=== PATIENT | male | born 1990 | race African-American/Black ===

== ENCOUNTER 2016-07-06 11:55 | Emergency (ER) | payer SELFPAY ==
[2016-07-06] MEDS ORDERED: Lorazepam 1 MG TAB ONE ×2 (12:31→12:32)
[2016-07-06 13:13] LABS: #Basophils 0.1 thou/uL (0.0-0.2); #Eosinphils 0.3 thou/uL (0.0-0.7); #Lymphocytes 1.6 thou/uL (1.20-3.40); #Monocytes 0.6 thou/uL (0.11-0.59); #Neutrophils 10.1 thou/uL (1.40-6.50); %Basophils 0.9 % (0.0-1.0); %Eosinophils 2.3 % (0.0-10.0); %Lymphocytes 12.8 % (21.0-51.0); Hemoglobin 15.4 g/dL (14.0-18.0); Mean Corpuscular HGB CONC 33.8 g/dL (32.0-36.0); Mean Corpuscular Hemoglobin 30.8 pg (27.0-31.0); Platelet Count 238 thou/uL (130-400); Red Blood Cell (RBC) Count 5.02 mill/uL (4.70-6.10); White Blood Cell (WBC) Count 12.7 thou/uL (4.8-10.8)
[2016-07-06 13:22] LABS: ALT (SGPT) 16 U/L (0-55); AST (SGOT) 19 U/L (5-34); Albumin 3.8 g/dL (3.5-5.0); Alkaline Phosphatase 49 U/L (40-150); Anion Gap 14 mmol/L (10-20); BUN (Urea Nitrogen) 11 mg/dL (8.9-20.6); Bilirubin, Total 0.7 mg/dL (0.2-1.2); Calc. Creatinine Clearance 0 mL/min (70-130); Calcium 8.9 mg/dL (7.8-10.44); Carbon Dioxide 25 mmol/L (22-29); Chloride 103 mmol/L (98-107); Dilantin Less than 1.8 ug/mL (10.0-20.0); Estimated GFR-MDRD Greater than 90; Globulin 2.2 g/dL (2.4-3.5); Glucose 89 mg/dL (70-105); Potassium 3.7 mmol/L (3.5-5.1); Sodium 138 mmol/L (136-145)
--- NOTE | 2016-07-06 14:19 | ERRECORD ---
[facility] EMERGENCY RECORD HPI SEIZURE (13:41 LLDO) CHIEF COMPLAINT: Patient presents for evaluation of seizure, Patient not currently postictal state, Patient presents for evaluation of this morning doing his community service. had single, tonic only seizure. no real post-ictal. back to normal w/i one minute. did fall and had to be caught. now very mild sx but no other sx. HISTORIAN: History provided by patient, History provided by patient's spouse. LOCATION: Symptoms are generalized. QUALITY: duration of symptoms less than 1 minute. SEVERITY: Maximum severity of symptoms moderate, Currently symptoms are mild. TIME COURSE: Sudden onset of symptoms, just prior to arrival, Symptoms have resolved, are intermittent. ASSOCIATED WITH: Associated with headache. EXACERBATED BY: Patient's condition exacerbated by noncompliance with medications, Patient's condition exacerbated by dilantin level exactly the same as a week ago. RELIEVED BY: Patient's condition relieved spontaneously, Patient's condition relieved by time. ROS CONSTITUTIONAL: Negative constitutional review of systems, pt says the seizures are from anxiety and he is asking for more benzo's. (13:47 LLDO) EYES: Negative eye review of systems, Historian denies eye pain, denies eye redness, denies eye discharge. (13:50 LLDO) ENT: Negative ears, nose, throat review of systems, Historian denies otalgia, denies rhinorrhea, denies sinus pain, denies sore throat. (13:50 LLDO) CARDIOVASCULAR: Negative cardiovascular review of systems, Historian denies chest pain, no radiation, Historian denies diaphoresis, denies paroxysmal nocturnal dyspnea, denies syncope. (13:50 LLDO) RESPIRATORY: Negative respiratory review of systems, Historian denies cough, denies shortness of breath, denies sputum. (13:50 LLDO) GI: Negative gastrointestinal review of systems, Historian denies abdominal pain, denies constipation, denies diarrhea, denies nausea, denies vomiting. (13:50 LLDO) MUSCULOSKELETAL: Negative musculoskeletal review of systems, Historian denies arthralgias, denies fall, denies injury, denies myalgias. (13:50 LLDO) NEUROLOGIC: Historian denies confusion, denies dizziness, denies dysphasia, denies focal weakness, denies gait changes, reports headache, denies irritability, denies lethargy, denies mental status changes, denies paralysis, denies paresthesias, reports seizures, denies sensory changes, denies speech changes, denies tics, denies tremors, denies vertigo. (13:47 LLDO) HEMO/LYMPHATIC: Normal hematologic/lymphatic system review, Historian denies abnormal blood clotting, denies gum bleeding, denies petechiae. (13:50 LLDO) &a-1R&a+25V*p+0X*y2398V*c202B*c15G*c2P*p-0X&a-25V&a+1R Name: Mahad Hernandez : 1990 M25 MedRec: [id number] AcctNum: [id number] Prepared: SunJul 06, 2016 21:13 by Interface Page 1 of 4 pMD [facility] EMERGENCY RECORD ALLERGIC/IMMUNOLOGIC: Normal allergy/immunologic system review, Historian denies eczema, denies environmental allergies, denies food allergies. (13:50 LLDO) PSYCHIATRIC: Negative psychiatric review of systems, Historian denies alcohol abuse, denies anxiety, denies depression, denies drug abuse, denies hallucinations. (13:50 LLDO) NOTES: All systems reviewed, negative except as described above. (13:47 LLDO) PAST MEDICAL HISTORY MEDICAL HISTORY: SEIZURES, ASTHMA. VERIFIED 04/28/16. (SunJul 06, 2016 12:15 SCHI) MALE SURGICAL HISTORY: Patient has no surgical history. (SunJul 06, 2016 12:15 SCHI) PSYCHIATRIC HISTORY: Psychiatric history includes, anxiety, Psychiatric history includes, depression, Notes: HX OF MAKING THREATENING PHONE CALLS; ORDER OF TRESPASS IN PLACE DUE TO SUCH PHONE CALLS, ANXIETY. (SunJul 06, 2016 12:15 SCHI) SOCIAL HISTORY: Patient denies alcohol use, Patient denies drug use, Patient currently uses tobacco, Patient currently uses tobacco, smokes cigarettes, Patient has smoked for 5 years, Social History includes DRUG ABUSE POLYSUBSTANCE, Patient denies alcohol use, Lives at home, with family. (SunJul 06, 2016 12:15 SCHI) NOTES: Nursing records reviewed, Agree with nursing records, Medication list reviewed. (13:50 LLDO) KNOWN ALLERGIES Penicillins CURRENT MEDICATIONS (12:15 SCHI) Dilantin Extended: CAPSULE : Strength - 100 mg : ORAL Patient Dose: 2 cap(s) Oral 2 times a day. VITAL SIGNS (12:15 SCHI) VITAL SIGNS: BP: 155/86, Pulse: 92, Resp: 18, Temp: 98.1 (Tympanic), Pain: 0, O2 sat: 99 on Room Air, Time: 07/06/2016 12:15. PHYSICAL EXAM (13:50 LLDO) CONSTITUTIONAL: Vital signs reviewed, Patient afebrile, Pulse normal, Blood pressure normal, Respiratory rate normal, Patient appears non toxic, Patient appears in pain, in mild pain distress, Patient alert and oriented to person, place and time. HEAD: Head exam normal, Head exam included findings of head atraumatic, normocephalic. EYES: Eye exam normal, Eye exam included findings of eyelids normal to inspection, Pupils equally round and reactive to light, Extraocular muscles intact. ENT: ENT exam normal, Ear exam normal, Nose exam normal. &a-1R&a+25V*p+0X*k2378G*c202B*c15G*c2P*p-0X&a-25V&a+1R Name: Mahad Hernandez : 1990 M25 MedRec: [id number] AcctNum: [id number] Prepared: Katie Jul 06, 2016 21:13 by Interface Page 2 of 4 pMD [facility] EMERGENCY RECORD NECK: Neck exam normal, Neck exam included findings of normal range of motion, Trachea midline, no meningeal signs, no tenderness. RESPIRATORY CHEST: Respiratory and chest exam normal, Respiratory exam included findings of no respiratory distress, Breath sounds clear, Chest exam included findings of chest movement symmetrical, Chest expansion equal. CARDIOVASCULAR: Cardiovascular assessment normal, Cardiovascular exam included findings of heart rate regular rate and rhythm, Heart sounds normal. ABDOMEN MALE: Abdominal exam normal, Abdominal exam included findings of abdomen nontender, Bowel sounds normal, no peritoneal signs. BACK: Back exam normal, Back exam included findings of normal inspection, range of motion normal. UPPER EXTREMITY: Upper extremity exam normal, Upper extremity exam included findings of inspection normal, Range of motion normal. LOWER EXTREMITY: Lower extremity exam normal, Lower extremity exam included findings of inspection normal, Range of motion normal. NEURO: Neuro exam findings include patient oriented to person, place and time, Speech normal, Gait normal, Memory normal, Cranial nerves intact, Deep tendon reflexes normal, no focal motor deficits, no focal sensory deficits, no cerebellar deficits, no nystagmus. SKIN: Skin exam normal, Skin exam included findings of skin warm, dry, and normal in color, no rash. PSYCHIATRIC: Psychiatric exam normal, Psychiatric exam included findings of patient oriented to person place and time, Normal affect, Judgment normal. MEDICATION ADMINISTRATION SUMMARY Drug Name: Ativan oral, Dose Ordered: 2 mg, Route: Oral, Status: Given, Time: 12:37 07/06/2016, Detailed record available in Medication Service section. DOCTOR NOTES TEXT: Dilantin level still 1.8, exactly same as last week. (13:51 LLDO) increase DPH to 300 in am and 200 in evening. get re-tested in 2 weeks. (13:58 LLDO) PROBLEM LIST No recorded problems DIAGNOSIS (13:59 LLDO) FINAL: PRIMARY: Seizure. PRESCRIPTION No recorded prescriptions DISPOSITION &a-1R&a+25V*p+0X*p9738Z*c202B*c15G*c2P*p-0X&a-25V&a+1R Name: Mahad Hernandez : 1990 M25 MedRec: [id number] AcctNum: [id number] Prepared: Katie Jul 06, 2016 21:13 by Interface Page 3 of 4 pMD [facility] EMERGENCY RECORD PATIENT: Disposition Type: Discharge, Disposition: *Discharge Home. (13:59 LLDO) Patient left the department. (14:12 SCHI) Castillo: LLDO=MD Katherine, Ludwin SCHI=BASSAM Liao, Francisa &a-1R&a+25V*p+0X*x4332S*c202B*c15G*c2P*p-0X&a-25V&a+1R Name: Mahad Hernandez Annette : 1990 M25 MedRec: [id number] AcctNum: [id number] Prepared: [facility] Jul 06, 2016 21:13 by Interface Page 4 of 4 pMD [facility]
--- NOTE | 2016-07-06 14:23 | PICIS ---
[facility] EMERGENCY RECORD TRIAGE (SunJul 06, 2016 12:15 SCHI) PATIENT: NAME: Mahad Hernandez, AGE: 25, GENDER: male, : Sun1990, TIME OF GREET: SunJul 06, 2016 11:56, PREFERRED LANGUAGE: Nigerian, RACE: Black or , ETHNICITY: Not or , FALL RISK: NO, ECODE BILLING MAP: [facility], SSN: [id number], Zip Code: [address], KG WEIGHT: 70.31, PHONE: , , , PERSON ID: [id number], PCP: MD Castillo Olayemi. TRIAGE NOTES: DONT THINK THE SEIZURE MEDS IS WORKING, OUT OF HIS MEDS FOR ANXIETY, SMALL SEIZURE THIS MORNING WHILE AT [facility] DOING COMMUNITY SERVICE. COMPLAINT: SEIZURE. ADMISSION: URGENCY: 4 Non Urgent, ADMISSION SOURCE: Home, TRANSPORT: Walk-in, BED: ED -H01. ASSESSMENT: Assessment: ALERT AND ORIENTED X 4, SKIN WARM AND DRY RESP EVEN AND UNLABORED,. TRIAGE SCREENING: Patient denies suicidal ideation, Patient denies presence of domestic violence. PROVIDERS: TRIAGE NURSE: Jennifer Liao RN. PREVIOUS VISIT ALLERGIES: Penicillins. KNOWN ALLERGIES Penicillins CURRENT MEDICATIONS (12:15 SCHI) Dilantin Extended: CAPSULE : Strength - 100 mg : ORAL Patient Dose: 2 cap(s) Oral 2 times a day. VITAL SIGNS (12:15 SCHI) VITAL SIGNS: BP: 155/86, Pulse: 92, Resp: 18, Temp: 98.1 (Tympanic), Pain: 0, O2 sat: 99 on Room Air, Time: 07/06/2016 12:15. NURSING ASSESSMENT: NEURO (12:20 SCHI) GCS: (6) Obeying command:, (5) Orientated:, (4) Spontaneous eye opening., Result: 15. NIHSS: CVA assessment findings: Level of consciousness: alert, keenly responsive (0), Questions: answers both questions correctly (0), Commands: performs both tasks correctly (0), Best gaze: normal (0), Visual: no visual loss (0), Facial palsy: normal symmetrical movement (0), Motor arm left: no drift, arm stays 90/45 degrees for full 10 seconds (0), Motor arm right: no drift, arm stays 90 or45 degrees for full 10 seconds (0), Motor left leg: no drift, leg stays at 30 degrees for full five seconds (0), Motor right leg: no drift, leg stays at 30 degrees for full five seconds (0), Limb ataxia: absent -if 0, go to sensory (0), Sensory: normal, no sensory loss (0), Best language: no aphasia; normal (0), Dysarthria: normal (0), Extinction and Inattention: normal (0), Total score 0. CONSTITUTIONAL: Patient arrives ambulatory, Gait steady, History &a-1R&a+25V*p+0X*m7854Q*c202B*c15G*c2P*p-0X&a-25V&a+1R Name: Mahad Hernandez : 1990 M25 MedRec: [id number] AcctNum: [id number] Prepared: Katie Jul 06, 2016 21:20 by Interface Page 1 of 6 pMD [facility] EMERGENCY RECORD obtained from patient, Patient appears comfortable, Patient cooperative, Patient alert, Oriented to person, place and time, Skin warm, Skin dry, Skin normal in color, Mucous membranes pink, Mucous membranes moist, Patient is well-groomed, Patient complains of seizure like activity. PAIN: Patient rates pain as 0 out of 10. NEURO: Pupils equally round and reactive to light, Able to close eyes, Face symmetrical, Speech normal, Associated with dizziness described as, feelings of movement. NURSING PROCEDURE: DISCHARGE NOTE (14:08 [facility]) DISCHARGE: Patient discharged to home, ambulating without assistance, family driving, accompanied by other family member, Summary of Care printed/ provided, Patient requested and was provided an electronic copy of Discharge Instructions, Transition record given to patient, Discharge instructions given to patient, Simple or moderate discharge teaching performed, Medication reconciliation form given, Above person(s) verbalized understanding of discharge instructions and follow-up care, Patient treated and evaluated by physician. BELONGINGS: Belongings and valuables with patient at time of discharge include:, Belongings remain with patient, Valuables remain with patient. SAFETY: Side rails up, Cart/Stretcher in lowest position, Family at bedside, Hospital ID band on. ORDER DETAILS Order Name: CBC with Differential, Status: Active, Time: 12:25 07/06/2016, User: CARLA, - Ordered for: MD Murphy Lloyd, - Entered by: MD Murphy Lloyd - [facility] Jul 06, 2016 12:25, - Quantity: 1, Order Name: Comprehensive Metabolic Panel, Status: Active, Time: 12:25 07/06/2016, User: CARLA, - Ordered for: MD Murphy Lloyd, - Entered by: MD Murphy Lloyd - [facility] Jul 06, 2016 12:25, - Quantity: 1, Order Name: Dilantin, Status: Active, Time: 12:25 07/06/2016, User: CARLA, - Ordered for: MD Murphy Lloyd, - Entered by: MD Murphy Lloyd - [facility] Jul 06, 2016 12:25, - Quantity: 1. MEDICATION ADMINISTRATION SUMMARY Drug Name: Ativan oral, Dose Ordered: 2 mg, Route: Oral, Status: Given, Time: 12:37 07/06/2016, Detailed record available in Medication Service section. &a-1R&a+25V*p+0X*r7893E*c202B*c15G*c2P*p-0X&a-25V&a+1R Name: Mahad Hernandez : 1990 M25 MedRec: [id number] AcctNum: [id number] Prepared: SunJul 06, 2016 21:20 by Interface Page 2 of 6 pMD [facility] EMERGENCY RECORD MEDICATION SERVICE (12:37 LLDO) Ativan oral: Order: Ativan oral (lorazepam) - Dose: 2 mg : Oral Schedule: Now Ordered by: Ludwin Murphy MD Entered by: Ludwin Murphy MD Katie Jul 06, 2016 12:27 , Acknowledged by: Jennifer Liao RN Katie Jul 06, 2016 12:30 Documented as given by: Jennifer Liao RN Katie Jul 06, 2016 12:37 Patient, Medication, Dose, Route and Time verified prior to administration. Site: Medication administered P.O., Correct patient, time, route, dose and medication confirmed prior to administration, Patient advised of actions and side-effects prior to administration, Allergies confirmed and medications reviewed prior to administration. HPI SEIZURE (13:41 LLDO) CHIEF COMPLAINT: Patient presents for evaluation of seizure, Patient not currently postictal state, Patient presents for evaluation of this morning doing his community service. had single, tonic only seizure. no real post-ictal. back to normal w/i one minute. did fall and had to be caught. now very mild sx but no other sx. HISTORIAN: History provided by patient, History provided by patient's spouse. LOCATION: Symptoms are generalized. QUALITY: duration of symptoms less than 1 minute. SEVERITY: Maximum severity of symptoms moderate, Currently symptoms are mild. TIME COURSE: Sudden onset of symptoms, just prior to arrival, Symptoms have resolved, are intermittent. ASSOCIATED WITH: Associated with headache. EXACERBATED BY: Patient's condition exacerbated by noncompliance with medications, Patient's condition exacerbated by dilantin level exactly the same as a week ago. RELIEVED BY: Patient's condition relieved spontaneously, Patient's condition relieved by time. ROS CONSTITUTIONAL: Negative constitutional review of systems, pt says the seizures are from anxiety and he is asking for more benzo's. (13:47 LLDO) EYES: Negative eye review of systems, Historian denies eye pain, denies eye redness, denies eye discharge. (13:50 LLDO) ENT: Negative ears, nose, throat review of systems, Historian denies otalgia, denies rhinorrhea, denies sinus pain, denies sore throat. (13:50 LLDO) CARDIOVASCULAR: Negative cardiovascular review of systems, Historian denies chest pain, no radiation, Historian denies diaphoresis, denies paroxysmal nocturnal dyspnea, denies syncope. (13:50 LLDO) RESPIRATORY: Negative respiratory review of systems, Historian denies cough, denies shortness of breath, denies sputum. (13:50 LLDO) &a-1R&a+25V*p+0X*b5912G*c202B*c15G*c2P*p-0X&a-25V&a+1R Name: Mahad Hernandez : 1990 M25 MedRec: [id number] AcctNum: [id number] Prepared: [facility] Jul 06, 2016 21:20 by Interface Page 3 of 6 pMD [facility] EMERGENCY RECORD GI: Negative gastrointestinal review of systems, Historian denies abdominal pain, denies constipation, denies diarrhea, denies nausea, denies vomiting. (13:50 LLDO) MUSCULOSKELETAL: Negative musculoskeletal review of systems, Historian denies arthralgias, denies fall, denies injury, denies myalgias. (13:50 LLDO) NEUROLOGIC: Historian denies confusion, denies dizziness, denies dysphasia, denies focal weakness, denies gait changes, reports headache, denies irritability, denies lethargy, denies mental status changes, denies paralysis, denies paresthesias, reports seizures, denies sensory changes, denies speech changes, denies tics, denies tremors, denies vertigo. (13:47 LLDO) HEMO/LYMPHATIC: Normal hematologic/lymphatic system review, Historian denies abnormal blood clotting, denies gum bleeding, denies petechiae. (13:50 LLDO) ALLERGIC/IMMUNOLOGIC: Normal allergy/immunologic system review, Historian denies eczema, denies environmental allergies, denies food allergies. (13:50 LLDO) PSYCHIATRIC: Negative psychiatric review of systems, Historian denies alcohol abuse, denies anxiety, denies depression, denies drug abuse, denies hallucinations. (13:50 LLDO) NOTES: All systems reviewed, negative except as described above. (13:47 LLDO) PAST MEDICAL HISTORY MEDICAL HISTORY: SEIZURES, ASTHMA. VERIFIED 04/28/16. (SunJul 06, 2016 12:15 SCHI) MALE SURGICAL HISTORY: Patient has no surgical history. (SunJul 06, 2016 12:15 SCHI) PSYCHIATRIC HISTORY: Psychiatric history includes, anxiety, Psychiatric history includes, depression, Notes: HX OF MAKING THREATENING PHONE CALLS; ORDER OF TRESPASS IN PLACE DUE TO SUCH PHONE CALLS, ANXIETY. (SunJul 06, 2016 12:15 SCHI) SOCIAL HISTORY: Patient denies alcohol use, Patient denies drug use, Patient currently uses tobacco, Patient currently uses tobacco, smokes cigarettes, Patient has smoked for 5 years, Social History includes DRUG ABUSE POLYSUBSTANCE, Patient denies alcohol use, Lives at home, with family. (SunJul 06, 2016 12:15 SCHI) NOTES: Nursing records reviewed, Agree with nursing records, Medication list reviewed. (13:50 LLDO) PHYSICAL EXAM (13:50 LLDO) CONSTITUTIONAL: Vital signs reviewed, Patient afebrile, Pulse normal, Blood pressure normal, Respiratory rate normal, Patient appears non toxic, Patient appears in pain, in mild pain distress, Patient alert and oriented to person, place and time. HEAD: Head exam normal, Head exam included findings of head atraumatic, normocephalic. EYES: Eye exam normal, Eye exam included findings of eyelids &a-1R&a+25V*p+0X*v0183A*c202B*c15G*c2P*p-0X&a-25V&a+1R Name: Mahad Hernandez : 1990 M25 MedRec: [id number] AcctNum: [id number] Prepared: [facility] Jul 06, 2016 21:20 by Interface Page 4 of 6 pMD [facility] EMERGENCY RECORD normal to inspection, Pupils equally round and reactive to light, Extraocular muscles intact. ENT: ENT exam normal, Ear exam normal, Nose exam normal. NECK: Neck exam normal, Neck exam included findings of normal range of motion, Trachea midline, no meningeal signs, no tenderness. RESPIRATORY CHEST: Respiratory and chest exam normal, Respiratory exam included findings of no respiratory distress, Breath sounds clear, Chest exam included findings of chest movement symmetrical, Chest expansion equal. CARDIOVASCULAR: Cardiovascular assessment normal, Cardiovascular exam included findings of heart rate regular rate and rhythm, Heart sounds normal. ABDOMEN MALE: Abdominal exam normal, Abdominal exam included findings of abdomen nontender, Bowel sounds normal, no peritoneal signs. BACK: Back exam normal, Back exam included findings of normal inspection, range of motion normal. UPPER EXTREMITY: Upper extremity exam normal, Upper extremity exam included findings of inspection normal, Range of motion normal. LOWER EXTREMITY: Lower extremity exam normal, Lower extremity exam included findings of inspection normal, Range of motion normal. NEURO: Neuro exam findings include patient oriented to person, place and time, Speech normal, Gait normal, Memory normal, Cranial nerves intact, Deep tendon reflexes normal, no focal motor deficits, no focal sensory deficits, no cerebellar deficits, no nystagmus. SKIN: Skin exam normal, Skin exam included findings of skin warm, dry, and normal in color, no rash. PSYCHIATRIC: Psychiatric exam normal, Psychiatric exam included findings of patient oriented to person place and time, Normal affect, Judgment normal. EVENTS TRANSFER: Triage to Emergency Main ED -H01. (SunJul 06, 2016 12:15 SCHI) Removed from Emergency Main ED -H01. (14:12 SCHI) DOCTOR NOTES TEXT: Dilantin level still 1.8, exactly same as last week. (13:51 LLDO) increase DPH to 300 in am and 200 in evening. get re-tested in 2 weeks. (13:58 LLDO) PROBLEM LIST No recorded problems DIAGNOSIS (13:59 LLDO) FINAL: PRIMARY: Seizure. DISPOSITION PATIENT: Disposition Type: Discharge, Disposition: *Discharge &a-1R&a+25V*p+0X*h7845C*c202B*c15G*c2P*p-0X&a-25V&a+1R Name: Mahad Hernandez : 1990 M25 MedRec: [id number] AcctNum: [id number] Prepared: SunJul 06, 2016 21:20 by Interface Page 5 of 6 pMD [facility] EMERGENCY RECORD Home. (13:59 LLDO) Patient left the department. (14:12 SCHI) INSTRUCTION (14:00 LLDO) DISCHARGE: SEIZURE, RECURRENT [ADULT]. FOLLOWUP: MD Jonathan, [facility], [facility], [address] [place] [address], , Follow up with Primary Care Physician in 10-14 days. PRESCRIPTION No recorded prescriptions IMAGING WORK NOTE: Image captured from scanner. (14:08 SCHI) *DISCHARGE INSTRUCTIONS RECEIPT: Image captured from scanner. (14:09 SCHI) *SUPPLY CHARGE SHEET: Image captured from scanner. (14:10 SCHI) ADMIN DIGITAL SIGNATURE: BASSAM Liao, Jennifer. (15:46 SCHI) MD Katherine, Ludwin. (21:09 LLDO) RESULTS (13:23 SCHI) LABORATORY: CBC with Differential Collection DT: SunJul 06, 2016 12:59, *White Blood Cell (WBC) Count 12.7 - H thou/uL, Range (4.8-10.8), Red Blood Cell (RBC) Count 5.02 mill/uL, Range (4.70-6.10), Hemoglobin 15.4 g/dL, Range (14.0-18.0), Hematocrit 45.7 %, Range (42.0-52.0), Mean Corpuscular Volume 91.0 fl, Range (80.0-94.0), Mean Corpuscular Hemoglobin 30.8 pg, Range (27.0-31.0), Mean Corpuscular HGB CONC 33.8 g/dL, Range (32.0-36.0), RBC Distribution Width 12.0 %, Range (11.5-14.5), Platelet Count 238 thou/uL, Range (130-400), *Mean Platelet Volume 7.0 - L fL, Range (7.4-10.4), *%Neutrophils 79.0 - H %, Range (42.0-75.0), *%Lymphocytes 12.8 - L %, Range (21.0-51.0), %Monocytes 5.0 %, Range (0.0-10.0), %Eosinophils 2.3 %, Range (0.0-10.0), %Basophils 0.9 %, Range (0.0-1.0), *#Neutrophils 10.1 - H thou/uL, Range (1.40-6.50), #Lymphocytes 1.6 thou/uL, Range (1.20-3.40), *#Monocytes 0.6 - H thou/uL, Range (0.11-0.59), #Eosinphils 0.3 thou/uL, Range (0.0-0.7), #Basophils 0.1 thou/uL, Range (0.0-0.2). Castillo: CARLA=MD Katherine, Ludwin ALTMAN=BASSAM Liao, Slinda &a-1R&a+25V*p+0X*w9670O*c202B*c15G*c2P*p-0X&a-25V&a+1R Name: Mahad Hernandez : 1990 M25 MedRec: [id number] AcctNum: [id number] Prepared: SunJul 06, 2016 21:20 by Interface Page 6 of 6 pMD [facility] MEDICATION RECONCILIATION You were seen in the Emergency Department on: SunJul 06, 2016 KNOWN ALLERGIES Penicillins MEDICATIONS GIVEN WHILE IN THE EMERGENCY DEPARTMENT Ativan oral (lorazepam) - Dose: 2 milligram(s) : Oral HOME MEDICATIONS CONTINUE PRESCRIBED Dilantin Extended : CAPSULE : Strength - 100 mg : ORAL Continue as prescribed Patient had been takin cap(s) Oral 2 times a day. Notes from the emergency department Reviewed with family Reviewed with patient &a-1R&a+25V*p+0X*g4455O*c202B*c15G*c2P*p-0X&a-25V&a+1R Name: LyonsKev albrechtcarlee Bryant : 1990 M25 MedRec: [id number] AcctNum: [id number] Prepared: SunJul 06, 2016 21:20 by Interface Alicia PEREYRA
== END 2016-07-06 14:08 | disposition home or self-care (01) ==
LOC: MADERS 11:55
DX: R56.9 Unspecified convulsions (principal); J45.909 Unspecified asthma, uncomplicated; F41.9 Anxiety disorder, unspecified; F32.9 Major depressive disorder, single episode, unspecified; F17.210 Nicotine dependence, cigarettes, uncomplicated
CPT/HCPCS: 36415; 80053; 80185; 85025; 99284

== ENCOUNTER 2016-10-15 20:02 | Emergency (ER) | payer SELFPAY ==
--- NOTE | 2016-10-15 21:40 | RAD ---
LEFT FOOT THREE VIEWS: History: Foot injury. FINDINGS: Tarsals appear intact. The metatarsals and phalanges appear intact. IMPRESSION: No acute abnormality identified. POS: [facility]
== END 2016-10-15 20:50 | disposition home or self-care (01) ==
LOC: MADERS 20:02
DX: S86.012A Strain of left Achilles tendon, initial encounter (principal); J45.909 Unspecified asthma, uncomplicated; F41.9 Anxiety disorder, unspecified; F32.9 Major depressive disorder, single episode, unspecified; F17.210 Nicotine dependence, cigarettes, uncomplicated; X58.XXXA Exposure to other specified factors, initial encounter; Y93.39 Activity, other involving climbing, rappelling and jumping off
CPT/HCPCS: 99283

== ENCOUNTER 2016-12-06 16:31 | Emergency (ER) | payer SELFPAY ==
[2016-12-06] MEDS ORDERED: Lorazepam 2 MG/ML VIAL ONE (16:42)
[2016-12-06] MEDS ORDERED: Ondansetron HCl/PF 4 MG/2 ML Vial ONE (16:58)
[2016-12-06] MEDS ORDERED: Ketorolac Tromethamine 30 MG/ML VIAL ONE (16:58)
[2016-12-06 17:22] LABS: #Basophils 0.1 thou/uL (0.0-0.2); #Lymphocytes 1.3 thou/uL (1.20-3.40); #Monocytes 0.5 thou/uL (0.11-0.59); #Neutrophils 8.7 thou/uL (1.40-6.50); %Basophils 0.6 % (0.0-1.0); %Eosinophils 0.1 % (0.0-10.0); %Lymphocytes 12.3 % (21.0-51.0); %Monocytes 4.4 % (0.0-10.0); %Neutrophils 82.6 % (42.0-75.0); Hemoglobin 15.1 g/dL (14.0-18.0); Mean Corpuscular HGB CONC 33.8 g/dL (32.0-36.0); Mean Corpuscular Hemoglobin 30.4 pg (27.0-31.0); Mean Corpuscular Volume 89.9 fl (80.0-94.0); Mean Platelet Volume 7.4 fL (7.4-10.4); Platelet Count 229 thou/uL (130-400); Red Blood Cell (RBC) Count 4.97 mill/uL (4.70-6.10); White Blood Cell (WBC) Count 10.6 thou/uL (4.8-10.8)
[2016-12-06 17:25] LABS: ALT (SGPT) 14 U/L (8-55); AST (SGOT) 17 U/L (5-34); Acetaminophen Less than 6.0 mcg/mL (10.0-30.0); Albumin 4.3 g/dL (3.5-5.0); Alcohol Less than 10 mg/dL (Less than 10); Alkaline Phosphatase 58 U/L (40-150); Anion Gap 16 mmol/L (10-20); BUN (Urea Nitrogen) 8 mg/dL (8.9-20.6); Bilirubin, Total 0.4 mg/dL (0.2-1.2); Calc. Creatinine Clearance 0 mL/min (70-130); Calcium 9.5 mg/dL (7.8-10.44); Carbon Dioxide 22 mmol/L (22-29); Chloride 105 mmol/L (98-107); Estimated GFR-MDRD Greater than 90; Globulin 3.3 g/dL (2.4-3.5); Glucose 85 mg/dL (70-105); Potassium 4.1 mmol/L (3.5-5.1); Protein, Total 7.6 g/dL (6.0-8.3); Salicylate Less than 8.0 mg/dL (15.0-30.0); Sodium 139 mmol/L (136-145)
[2016-12-06 17:28] LABS: Amphetamine Not Detected (NotDetected); Barbiturates Screen Detected (NotDetected); Benzodiazepine Screen Detected (NotDetected); Cocaine Metabolite Screen Not Detected (NotDetected); Medtox Control Line Valid? VALID (VALID); Methadone Not Detected (NotDetected); Methamphetamine Not Detected (NotDetected); Opiate Screen Not Detected (NotDetected); Oxycodone Screen Not Detected (NotDetected); Phencyclidine (PCP) Not Detected (NotDetected); THC/Cannabinoid Screen Detected (NotDetected); Tricyclic Screen Not Detected (NotDetected)
--- NOTE | 2016-12-06 17:37 | RAD ---
FRONTAL VIEW CHEST: Date: 12/06/16 COMPARISON: 02/15/15. INDICATION: Seizure activity. FINDINGS: The lungs are clear. There is no effusion or pneumothorax. Cardiac silhouette is normal in size. IMPRESSION: No focal consolidation. POS: [facility]
[2016-12-07 17:30] LABS: Dilantin 20.5 ug/mL (10.0-20.0)
== END 2016-12-06 18:40 ==
LOC: MADERS 16:31
DX: R56.9 Unspecified convulsions (principal); J45.909 Unspecified asthma, uncomplicated; F41.9 Anxiety disorder, unspecified; F32.9 Major depressive disorder, single episode, unspecified; F17.210 Nicotine dependence, cigarettes, uncomplicated; Z79.899 Other long term (current) drug therapy
CPT/HCPCS: 36415; 71010; 80053; 80185; 80306; 80307; 83880; 84443; 85025; 87086; 93005; 96374; 96375; 96376; J1885; J2060; J2405

== ENCOUNTER 2016-12-09 10:51 | Emergency (ER) | payer SELFPAY ==
[2016-12-09] MEDS ORDERED: Lorazepam 2 MG/ML VIAL ONE ×4 (11:13→14:50)
[2016-12-09 11:29] LABS: #Basophils 0.1 thou/uL (0.0-0.2); #Eosinphils 0.1 thou/uL (0.0-0.7); #Lymphocytes 1.3 thou/uL (1.20-3.40); #Monocytes 0.5 thou/uL (0.11-0.59); #Neutrophils 5.9 thou/uL (1.40-6.50); %Basophils 0.9 % (0.0-1.0); %Eosinophils 1.7 % (0.0-10.0); %Lymphocytes 16.9 % (21.0-51.0); %Monocytes 5.7 % (0.0-10.0); %Neutrophils 74.7 % (42.0-75.0); Hemoglobin 15.7 g/dL (14.0-18.0); Mean Corpuscular HGB CONC 33.6 g/dL (32.0-36.0); Mean Corpuscular Hemoglobin 30.2 pg (27.0-31.0); Mean Corpuscular Volume 89.9 fl (80.0-94.0); Mean Platelet Volume 7.2 fL (7.4-10.4); Platelet Count 241 thou/uL (130-400); RBC Distribution Width 12.1 % (11.5-14.5); Red Blood Cell (RBC) Count 5.19 mill/uL (4.70-6.10); White Blood Cell (WBC) Count 7.9 thou/uL (4.8-10.8)
[2016-12-09 11:32] LABS: INR-International Normal Ratio 1.1; PTT 30.3 SEC (22.9-36.1); Prothrombin Time 14.9 SEC (12.0-14.7)
[2016-12-09 11:44] LABS: Acetaminophen Less than 6.0 mcg/mL (10.0-30.0); Alcohol Less than 10 mg/dL (Less than 10); Salicylate Less than 8.0 mg/dL (15.0-30.0)
[2016-12-09 11:47] LABS: ALT (SGPT) 15 U/L (8-55); AST (SGOT) 16 U/L (5-34); Albumin 4.4 g/dL (3.5-5.0); Alkaline Phosphatase 56 U/L (40-150); Anion Gap 15 mmol/L (10-20); BUN (Urea Nitrogen) 12 mg/dL (8.9-20.6); Bilirubin, Total 0.9 mg/dL (0.2-1.2); CK (CPK) 288 U/L (30-200); Calc. Creatinine Clearance 0 mL/min (70-130); Calcium 9.6 mg/dL (7.8-10.44); Carbon Dioxide 23 mmol/L (22-29); Chloride 104 mmol/L (98-107); Estimated GFR-MDRD Greater than 90; Globulin 3.4 g/dL (2.4-3.5); Glucose 101 mg/dL (70-105); Potassium 3.5 mmol/L (3.5-5.1); Protein, Total 7.8 g/dL (6.0-8.3); Sodium 138 mmol/L (136-145)
[2016-12-09 11:51] LABS: CKMB 1.1 ng/mL (0-6.6); Troponin I Less than 0.010 ng/mL (< 0.028)
--- NOTE | 2016-12-09 12:31 | RAD ---
UPRIGHT PORTABLE CHEST 1 VIEW: Date: 12/09/16 HISTORY: 26-year-old male with seizure. COMPARISON: 12/06/16. FINDINGS: Heart size is within normal limits. The lungs are clear. IMPRESSION: No acute intrathoracic disease. Stable from prior study. POS: [facility]
[2016-12-09 14:37] LABS: Clarity Turbid (Clear); Specific Gravity, Urine 1.008 (1.005-1.030)
[2016-12-09 14:38] LABS: Bacteria/HPF 3+ HPF (None Seen); Bilirubin Negative (Negative); Blood, Urine Negative (Negative); Crystals/HPF 3+ AMORPH PHOS HPF (Negative); Glucose, Urine (Dipstick) Negative (Negative); Leukocyte Trace (Negative); Nitrite Negative (Negative); Protein, Urine (Dipstick) Negative (Neg-Trace); RBC/HPF 0-3 HPF (0-3); Renal Epithelial 0-3 HPF (0-3); Transitional Epithelial 0-3 HPF (0-3)
[2016-12-09 14:39] LABS: Amphetamine Not Detected (NotDetected); Barbiturates Screen Detected (NotDetected); Benzodiazepine Screen Detected (NotDetected); Cocaine Metabolite Screen Not Detected (NotDetected); Medtox Control Line Valid? VALID (VALID); Methadone Not Detected (NotDetected); Methamphetamine Not Detected (NotDetected); Opiate Screen Not Detected (NotDetected); Oxycodone Screen Not Detected (NotDetected); Phencyclidine (PCP) Not Detected (NotDetected); THC/Cannabinoid Screen Detected (NotDetected); Tricyclic Screen Not Detected (NotDetected)
[2016-12-09] MEDS ORDERED: Sulfameth/Trimethoprim DS 800-160mg TAB ONE (14:54)
[2016-12-09] MEDS ORDERED: ALPRAZolam 0.25 MG TAB ONE (15:05)
== END 2016-12-09 13:33 | disposition short-term general hospital (02) ==
LOC: MADERS 10:51
DX: G40.901 Epilepsy, unspecified, not intractable, with status epilepticus (principal); N39.0 Urinary tract infection, site not specified; J45.909 Unspecified asthma, uncomplicated; F41.9 Anxiety disorder, unspecified; F32.9 Major depressive disorder, single episode, unspecified; F17.210 Nicotine dependence, cigarettes, uncomplicated; Z79.899 Other long term (current) drug therapy
CPT/HCPCS: 36415; 71010; 80053; 80306; 80307; 81001; 82550; 82553; 83880; 84484; 85025; 85610; 85730; 93005; 94760; 96374; 96376; J2060

== ENCOUNTER 2019-02-07 15:06 | Emergency (ER) | payer SELFPAY ==
[2019-02-07 16:13] LABS: Bilirubin Small (Negative); Blood, Urine Trace (Negative); Glucose, Urine (Dipstick) Negative (Negative); Leukocyte Trace (Negative); Nitrite Negative (Negative); Protein, Urine (Dipstick) 30 mg/dL (Neg-Trace)
[2019-02-07 16:14] LABS: Clarity Hazy (Clear)
[2019-02-07 16:15] LABS: Bacteria/HPF 2+ HPF (None Seen); RBC/HPF 0-3 HPF (0-3); Squamous Epithelial 0-3 HPF (0-3)
== END 2019-02-07 15:57 | disposition home or self-care (01) ==
LOC: MADERS 15:06
DX: R20.2 Paresthesia of skin (principal); J45.909 Unspecified asthma, uncomplicated; F32.9 Major depressive disorder, single episode, unspecified; F41.9 Anxiety disorder, unspecified; F17.210 Nicotine dependence, cigarettes, uncomplicated; Z79.899 Other long term (current) drug therapy
CPT/HCPCS: 81003; 81015; 87491; 87591; 99283

== ENCOUNTER 2019-03-25 21:59 | Emergency (ER) | payer SELFPAY ==
--- NOTE | 2019-03-25 22:27 | RAD ---
Exam: Chest one view HISTORY:Injury. Pain. Comparison: 12/09/2016 FINDINGS: Cardiac silhouette: Normal Aorta: Unremarkable Pulmonary vessels: Normal Costophrenic angles: Clear LUNGS: No masses or consolidation. Pneumothorax: None Osseous abnormalities: None IMPRESSION: No acute cardiopulmonary process.
== END 2019-03-25 22:58 | disposition left against medical advice (07) ==
LOC: MADERS 21:59
DX: R07.9 Chest pain, unspecified (principal); J45.909 Unspecified asthma, uncomplicated; F41.9 Anxiety disorder, unspecified; F32.9 Major depressive disorder, single episode, unspecified; F17.210 Nicotine dependence, cigarettes, uncomplicated; Z79.899 Other long term (current) drug therapy
CPT/HCPCS: 71045

== ENCOUNTER 2019-03-27 13:06 | Emergency (ER) | payer SELFPAY ==
--- NOTE | 2019-03-27 13:53 | RAD ---
Portable frontal chest radiograph: 03/27/2019 COMPARISON: 03/25/2019 HISTORY: Chest pain FINDINGS: Lungs are clear. Heart and mediastinal contours appear within normal limits. IMPRESSION: No acute findings.
[2019-03-27 14:14] LABS: ALT (SGPT) 21 U/L (8-55); AST (SGOT) 16 U/L (5-34); Albumin 4.1 g/dL (3.5-5.0); Alkaline Phosphatase 61 U/L (40-110); Anion Gap 15 mmol/L (10-20); BUN (Urea Nitrogen) 8 mg/dL (8.9-20.6); Bilirubin, Total 0.4 mg/dL (0.2-1.2); CK (CPK) 124 U/L (30-200); Calc. Creatinine Clearance 0 mL/min (70-130); Calcium 9.4 mg/dL (7.8-10.44); Carbon Dioxide 22 mmol/L (22-29); Chloride 107 mmol/L (98-107); Estimated GFR-MDRD Greater than 90; Globulin 2.8 g/dL (2.4-3.5); Glucose 123 mg/dL (70-105); Potassium 3.7 mmol/L (3.5-5.1); Protein, Total 6.9 g/dL (6.0-8.3); Sodium 140 mmol/L (136-145)
[2019-03-27 14:18] LABS: Hemoglobin 15.5 g/dL (14.0-18.0); Lymphocytes 8 % (21-51); MDiff Complete? YES; Mean Corpuscular Hemoglobin 29.2 pg (27.0-31.0); Mean Corpuscular Volume 88.7 fL (78.0-98.0); Mean Platelet Volume 7.2 fL (7.4-10.4); Monocytes 4 % (0-10); Neutrophil 78 % (42-75); Platelet Count 271 thou/uL (130-400); Platelet Morphology Comment Appears Adequate; RBC Distribution Width 12.3 % (11.5-14.5); RBC Morphology Normal; Reactive Lymphocytes 10 % (0-10); White Blood Cell (WBC) Count 9.6 thou/uL (4.8-10.8)
[2019-03-27 14:26] LABS: Bilirubin Small (Negative); Blood, Urine Negative (Negative); Clarity Clear (Clear); Glucose, Urine (Dipstick) Negative (Negative); Leukocyte Negative (Negative); Nitrite Negative (Negative); Protein, Urine (Dipstick) Negative (Neg-Trace)
[2019-03-27 14:34] LABS: Amphetamine Not Detected (NotDetected); Benzodiazepine Screen Detected (NotDetected); Cocaine Metabolite Screen Not Detected (NotDetected); Methadone Not Detected (NotDetected); Methamphetamine Not Detected (NotDetected); Opiate Screen Detected (NotDetected); Phencyclidine (PCP) Not Detected (NotDetected); THC/Cannabinoid Screen Detected (NotDetected); Tricyclic Screen Not Detected (NotDetected)
[2019-03-27 14:35] LABS: Barbiturates Screen Not Detected (NotDetected); Medtox Control Line Valid? VALID (VALID); Oxycodone Screen Not Detected (NotDetected)
== END 2019-03-27 14:58 | disposition home or self-care (01) ==
LOC: MADERS 13:06
DX: R07.89 Other chest pain (principal); J45.909 Unspecified asthma, uncomplicated; F12.10 Cannabis abuse, uncomplicated; F41.9 Anxiety disorder, unspecified; F32.9 Major depressive disorder, single episode, unspecified; F17.210 Nicotine dependence, cigarettes, uncomplicated; Z79.899 Other long term (current) drug therapy
CPT/HCPCS: 71045; 80053; 80306; 81003; 82550; 84484; 85025; 85379; 93005; 94760; J7620

== ENCOUNTER 2019-04-08 09:51 | Emergency (ER) | payer SELFPAY ==
[2019-04-08] MEDS ORDERED: methylPREDNISolone Sod Succ/PF 125 MG/2 ML VIAL ONE (10:11)
== END 2019-04-08 10:38 | disposition home or self-care (01) ==
LOC: MADERS 09:51
DX: T78.40XA Allergy, unspecified, initial encounter (principal); J45.909 Unspecified asthma, uncomplicated; F41.9 Anxiety disorder, unspecified; F32.9 Major depressive disorder, single episode, unspecified; F17.210 Nicotine dependence, cigarettes, uncomplicated; Z79.899 Other long term (current) drug therapy; Z79.51 Long term (current) use of inhaled steroids
CPT/HCPCS: 96372; 99283; J2930

== ENCOUNTER 2019-05-27 10:53 | Emergency (ER) | payer SELFPAY | END 2019-05-27 11:32 | disposition home or self-care (01) | LOC: MADERS 10:53 | DX: G40.909 Epilepsy, unspecified, not intractable, without status epilepticus (principal); F41.9 Anxiety disorder, unspecified; F32.9 Major depressive disorder, single episode, unspecified; F17.210 Nicotine dependence, cigarettes, uncomplicated; J45.909 Unspecified asthma, uncomplicated; Z71.6 Tobacco abuse counseling; Z79.899 Other long term (current) drug therapy | CPT/HCPCS: 99406 ==

== ENCOUNTER 2019-07-24 03:04 | Emergency (ER) | payer SELFPAY ==
[2019-07-24] MEDS ORDERED: Ziprasidone 20 MG VIAL ONE ×2 (03:39→03:47)
[2019-07-24 04:04] LABS: #Monocytes 0.9 thou/uL (0.11-0.59); #Neutrophils 9.6 thou/uL (1.40-6.50); %Eosinophils 0.5 % (0.0-10.0); %Lymphocytes 22.1 % (21.0-51.0); %Monocytes 6.8 % (0.0-10.0); %Neutrophils 69.6 % (42.0-75.0); ALT (SGPT) 37 U/L (8-55); AST (SGOT) 23 U/L (5-34); Albumin 5.2 g/dL (3.5-5.0); Alkaline Phosphatase 72 U/L (40-110); Anion Gap 19 mmol/L (10-20); BUN (Urea Nitrogen) 10 mg/dL (8.9-20.6); Band 2 % (5-11); Bilirubin, Total 0.9 mg/dL (0.2-1.2); Calc. Creatinine Clearance 0 mL/min (70-130); Calcium 10.6 mg/dL (7.8-10.44); Chloride 102 mmol/L (98-107); Eosinophils 1 % (0-10); Estimated GFR-MDRD 87; Globulin 3.8 g/dL (2.4-3.5); Glucose 97 mg/dL (70-105); Hemoglobin 18.6 g/dL (14.0-18.0); Lymphocytes 21 % (21-51); MDiff Complete? YES; Mean Corpuscular HGB CONC 30.9 g/dL (32.0-36.0); Mean Corpuscular Hemoglobin 28.4 pg (27.0-31.0); Mean Corpuscular Volume 92.1 fL (78.0-98.0); Mean Platelet Volume 7.2 fL (7.4-10.4); Monocytes 6 % (0-10); Neutrophil 70 % (42-75); Platelet Count 320 thou/uL (130-400); Potassium 3.7 mmol/L (3.5-5.1); Red Blood Cell (RBC) Count 6.54 mill/uL (4.70-6.10); Sodium 140 mmol/L (136-145); White Blood Cell (WBC) Count 13.7 thou/uL (4.8-10.8)
[2019-07-24 04:05] LABS: Acetaminophen Less than 6.0 mcg/mL (10.0-30.0); CK (CPK) 112 U/L (30-200); Salicylate Less than 8.0 mg/dL (15.0-30.0)
[2019-07-24 04:06] LABS: Alcohol Less than 10 mg/dL (Less than 10); Carbon Dioxide 23 mmol/L (22-29)
[2019-07-24 04:20] LABS: Bilirubin Small (Negative); Blood, Urine Negative (Negative); Clarity Clear (Clear); Glucose, Urine (Dipstick) Negative (Negative); Leukocyte Negative (Negative); Nitrite Negative (Negative); Protein, Urine (Dipstick) 30 mg/dL (Neg-Trace)
[2019-07-24 04:22] LABS: Bacteria/HPF None Seen HPF (None Seen); Mucous/LPF 2+ LPF (<2+); RBC/HPF 0-3 HPF (0-3); Squamous Epithelial 0-3 HPF (0-3); WBC/HPF 0-3 HPF (0-3)
[2019-07-24 04:27] LABS: Cocaine Metabolite Screen Not Detected (NotDetected); Phencyclidine (PCP) Not Detected (NotDetected); THC/Cannabinoid Screen Detected (NotDetected)
[2019-07-24 04:28] LABS: Amphetamine Not Detected (NotDetected); Barbiturates Screen Detected (NotDetected); Benzodiazepine Screen Detected (NotDetected); Medtox Control Line Valid? VALID (VALID); Methadone Not Detected (NotDetected); Methamphetamine Not Detected (NotDetected); Opiate Screen Not Detected (NotDetected); Oxycodone Screen Not Detected (NotDetected); Tricyclic Screen Not Detected (NotDetected)
== END 2019-07-24 04:59 | disposition home or self-care (01) ==
LOC: MADERS 03:04
DX: G47.00 Insomnia, unspecified (principal); F41.9 Anxiety disorder, unspecified; E03.9 Hypothyroidism, unspecified; I10 Essential (primary) hypertension; J45.909 Unspecified asthma, uncomplicated; F20.9 Schizophrenia, unspecified; F32.9 Major depressive disorder, single episode, unspecified; F17.210 Nicotine dependence, cigarettes, uncomplicated; Z79.899 Other long term (current) drug therapy
CPT/HCPCS: 80053; 80185; 80306; 80307; 81003; 81015; 82550; 84146; 84443; 85025; 96372; 99284; J3486

== ENCOUNTER 2020-02-14 14:37 | Emergency (ER) | payer BC, SELFPAY ==
[2020-02-14] MEDS ORDERED: Ondansetron ODT 4 MG TAB ONE (15:40)
[2020-02-14 15:48] LABS: #Basophils 0.1 thou/uL (0.0-0.2); #Eosinphils 0.2 thou/uL (0.0-0.7); #Lymphocytes 2.6 thou/uL (1.20-3.40); #Monocytes 0.5 thou/uL (0.11-0.59); #Neutrophils 6.6 thou/uL (1.40-6.50); %Basophils 1.2 % (0.0-1.0); %Eosinophils 2.2 % (0.0-10.0); %Lymphocytes 25.5 % (21.0-51.0); %Monocytes 5.1 % (0.0-10.0); Hemoglobin 15.9 g/dL (14.0-18.0); Mean Corpuscular Hemoglobin 29.6 pg (27.0-31.0); Mean Corpuscular Volume 92.4 fL (78.0-98.0); Mean Platelet Volume 6.9 fL (7.4-10.4); Platelet Count 266 thou/uL (130-400); RBC Distribution Width 12.5 % (11.5-14.5); Red Blood Cell (RBC) Count 5.37 mill/uL (4.70-6.10)
[2020-02-14 15:55] LABS: Amphetamine Not Detected (NotDetected); Barbiturates Screen Not Detected (NotDetected); Benzodiazepine Screen Detected (NotDetected); Cocaine Metabolite Screen Not Detected (NotDetected); Medtox Control Line Valid? VALID (VALID); Methadone Not Detected (NotDetected); Methamphetamine Not Detected (NotDetected); Opiate Screen Detected (NotDetected); Oxycodone Screen Not Detected (NotDetected); Phencyclidine (PCP) Not Detected (NotDetected); THC/Cannabinoid Screen Detected (NotDetected); Tricyclic Screen Not Detected (NotDetected)
[2020-02-14 16:02] LABS: ALT (SGPT) 17 U/L (8-55); AST (SGOT) 13 U/L (5-34); Alkaline Phosphatase 62 U/L (40-110); Anion Gap 14 mmol/L (10-20); BUN (Urea Nitrogen) 11 mg/dL (8.9-20.6); Bilirubin, Total 0.6 mg/dL (0.2-1.2); CK (CPK) 108 U/L (30-200); Calc. Creatinine Clearance 0 mL/min (70-130); Calcium 8.8 mg/dL (7.8-10.44); Carbon Dioxide 25 mmol/L (22-29); Chloride 107 mmol/L (98-107); Estimated GFR-MDRD Greater than 90; Glucose 65 mg/dL (70-105); Potassium 3.8 mmol/L (3.5-5.1); Sodium 142 mmol/L (136-145)
== END 2020-02-14 16:52 | disposition home or self-care (01) ==
LOC: MADERS 14:37
DX: F43.0 Acute stress reaction (principal); F41.9 Anxiety disorder, unspecified; F12.10 Cannabis abuse, uncomplicated; R11.2 Nausea with vomiting, unspecified; J45.909 Unspecified asthma, uncomplicated; F20.9 Schizophrenia, unspecified; E03.9 Hypothyroidism, unspecified; I10 Essential (primary) hypertension; F32.9 Major depressive disorder, single episode, unspecified; F17.210 Nicotine dependence, cigarettes, uncomplicated; Z79.899 Other long term (current) drug therapy
CPT/HCPCS: 80053; 80306; 82550; 84443; 85025; 99284; Q0162

== ENCOUNTER 2020-04-11 13:41 | Emergency (ER) | payer BC ==
--- NOTE | 2020-04-11 14:46 | RAD ---
Chest one view HISTORY: Dyspnea. COMPARISON: 03/27/2019. FINDINGS: Cardiac silhouette and pulmonary vasculature are unremarkable. Mediastinum is midline. No confluent airspace consolidation or evidence of pneumothorax. IMPRESSION : No abnormalities are demonstrated.
[2020-04-11 15:01] LABS: Band 1 % (5-11); Eosinophils 2 % (0-10); Hemoglobin 15.9 g/dL (14.0-18.0); Lymphocytes 21 % (21-51); MDiff Complete? YES; Mean Corpuscular HGB CONC 32.4 g/dL (32.0-36.0); Mean Corpuscular Hemoglobin 29.4 pg (27.0-31.0); Mean Corpuscular Volume 90.8 fL (78.0-98.0); Mean Platelet Volume 7.2 fL (7.4-10.4); Monocytes 5 % (0-10); Neutrophil 59 % (42-75); Platelet Count 283 thou/uL (130-400); Platelet Morphology Comment Appears Adequate; RBC Distribution Width 12.1 % (11.5-14.5); RBC Morphology Normal; Reactive Lymphocytes 12 % (0-10); White Blood Cell (WBC) Count 8.7 thou/uL (4.8-10.8)
[2020-04-11 15:02] LABS: ALT (SGPT) 22 U/L (8-55); AST (SGOT) 17 U/L (5-34); Albumin 4.1 g/dL (3.5-5.0); Alkaline Phosphatase 57 U/L (40-110); Anion Gap 16 mmol/L (10-20); BUN (Urea Nitrogen) 12 mg/dL (8.9-20.6); Bilirubin, Total 1.2 mg/dL (0.2-1.2); Calc. Creatinine Clearance 0 mL/min (70-130); Calcium 9.2 mg/dL (7.8-10.44); Carbon Dioxide 25 mmol/L (22-29); Chloride 104 mmol/L (98-107); Estimated GFR-MDRD Greater than 90; Globulin 3.1 g/dL (2.4-3.5); Glucose 82 mg/dL (70-105); Potassium 4.2 mmol/L (3.5-5.1); Protein, Total 7.2 g/dL (6.0-8.3); Sodium 141 mmol/L (136-145)
== END 2020-04-11 15:43 | disposition home or self-care (01) ==
LOC: MADERS 13:41
DX: R55 Syncope and collapse (principal); J45.909 Unspecified asthma, uncomplicated; E03.9 Hypothyroidism, unspecified; F41.9 Anxiety disorder, unspecified; F20.9 Schizophrenia, unspecified; F17.210 Nicotine dependence, cigarettes, uncomplicated
CPT/HCPCS: 36415; 71045; 80053; 84443; 84484; 85025; 93005

== ENCOUNTER 2020-04-19 13:02 | Emergency (ER) | payer BC, OTHER ==
[2020-04-19] MEDS ORDERED: Dexamethasone 10 MG/ML VIAL ONE (14:25)
[2020-04-20 12:57] LABS: SARS-CoV-2 MS2 Positive; SARS-CoV-2 N Gene Negative; SARS-CoV-2 S Gene Negative; SARS-CoV-2 by NAA Not Detected (NotDetected); SARS-CoV-2 orf1ab Negative
== END 2020-04-19 15:00 | disposition home or self-care (01) ==
LOC: MADERS 13:02
DX: J06.9 Acute upper respiratory infection, unspecified (principal); Z20.828 Contact with and (suspected) exposure to other viral communicable diseases; E03.9 Hypothyroidism, unspecified; I10 Essential (primary) hypertension; F41.9 Anxiety disorder, unspecified; J45.909 Unspecified asthma, uncomplicated; F20.9 Schizophrenia, unspecified; F17.210 Nicotine dependence, cigarettes, uncomplicated; Z79.899 Other long term (current) drug therapy
CPT/HCPCS: 87635; 96372; 99283; J1100; U0003

== ENCOUNTER 2020-05-03 08:36 | Emergency (ER) | payer BC | END 2020-05-03 09:00 | disposition home or self-care (01) | LOC: MADERS 08:36 | DX: R56.9 Unspecified convulsions (principal); E03.9 Hypothyroidism, unspecified; I10 Essential (primary) hypertension; F41.9 Anxiety disorder, unspecified; F20.9 Schizophrenia, unspecified; F32.9 Major depressive disorder, single episode, unspecified; J45.909 Unspecified asthma, uncomplicated; F17.210 Nicotine dependence, cigarettes, uncomplicated; Z79.899 Other long term (current) drug therapy | CPT/HCPCS: 99284 ==

== ENCOUNTER 2020-05-30 07:30 | Emergency (ER) | payer BC ==
[2020-05-30] MEDS ORDERED: Ondansetron ODT 4 MG TAB ONE (08:34)
[2020-05-30] MEDS ORDERED: Ketorolac Tromethamine 30 MG/ML VIAL ONE (08:34)
== END 2020-05-30 08:54 | disposition home or self-care (01) ==
LOC: MADERS 07:30
DX: K04.7 Periapical abscess without sinus (principal); R51.9 Headache, unspecified; J45.909 Unspecified asthma, uncomplicated; E03.9 Hypothyroidism, unspecified; I10 Essential (primary) hypertension; F41.9 Anxiety disorder, unspecified; F20.9 Schizophrenia, unspecified; F32.9 Major depressive disorder, single episode, unspecified; F17.210 Nicotine dependence, cigarettes, uncomplicated; Z79.899 Other long term (current) drug therapy
CPT/HCPCS: 96372; 99282; J1885; Q0162

== ENCOUNTER 2020-06-11 02:08 | Emergency (ER) | payer BC ==
[2020-06-11] MEDS ORDERED: Bupivacaine PF 0.5% 30 ML VIAL ONE ×2 (02:36→02:41)
== END 2020-06-11 02:48 | disposition home or self-care (01) ==
LOC: MADERS 02:08
DX: K08.89 Other specified disorders of teeth and supporting structures (principal); R59.0 Localized enlarged lymph nodes; J45.909 Unspecified asthma, uncomplicated; I10 Essential (primary) hypertension; E03.9 Hypothyroidism, unspecified; F17.210 Nicotine dependence, cigarettes, uncomplicated; Z79.899 Other long term (current) drug therapy
CPT/HCPCS: 64400; S0020

== ENCOUNTER 2020-06-12 07:38 | Emergency (ER) | payer BC ==
[2020-06-12] MEDS ORDERED: Ondansetron ODT 4 MG TAB ONE (08:01)
[2020-06-12] MEDS ORDERED: Ketorolac Tromethamine 30 MG/ML VIAL ONE (08:01)
== END 2020-06-12 08:12 | disposition home or self-care (01) ==
LOC: MADERS 07:38
DX: K04.7 Periapical abscess without sinus (principal); K03.81 Cracked tooth; E03.9 Hypothyroidism, unspecified; I10 Essential (primary) hypertension; F17.210 Nicotine dependence, cigarettes, uncomplicated; J45.909 Unspecified asthma, uncomplicated; Z79.899 Other long term (current) drug therapy
CPT/HCPCS: 96372; 99282; J1885; Q0162

== ENCOUNTER 2020-06-23 13:01 | Emergency (ER) | payer BC ==
[2020-06-23] MEDS ORDERED: Ketorolac Tromethamine 30 MG/ML VIAL ONE (13:53)
[2020-06-23] MEDS ORDERED: Ondansetron ODT 4 MG TAB ONE (13:53)
== END 2020-06-23 14:10 | disposition home or self-care (01) ==
LOC: MADERS 13:01
DX: K04.7 Periapical abscess without sinus (principal); K02.9 Dental caries, unspecified; J45.909 Unspecified asthma, uncomplicated; E03.9 Hypothyroidism, unspecified; I10 Essential (primary) hypertension; F17.210 Nicotine dependence, cigarettes, uncomplicated; Z79.899 Other long term (current) drug therapy
CPT/HCPCS: 96372; 99283; J1885; Q0162

== ENCOUNTER 2020-06-29 10:44 | Emergency (ER) | payer BC ==
[2020-06-29 11:47] LABS: #Basophils 0.1 thou/uL (0.0-0.2); #Eosinphils 0.2 thou/uL (0.0-0.7); #Lymphocytes 1.6 thou/uL (1.20-3.40); #Monocytes 0.5 thou/uL (0.11-0.59); #Neutrophils 9.3 thou/uL (1.40-6.50); %Basophils 1.1 % (0.0-1.0); %Eosinophils 2.1 % (0.0-10.0); %Lymphocytes 13.8 % (21.0-51.0); %Monocytes 4.1 % (0.0-10.0); %Neutrophils 78.9 % (42.0-75.0); Hemoglobin 17.7 g/dL (14.0-18.0); Mean Corpuscular HGB CONC 32.2 g/dL (32.0-36.0); Mean Corpuscular Hemoglobin 30.5 pg (27.0-31.0); Mean Corpuscular Volume 94.7 fL (78.0-98.0); Mean Platelet Volume 6.6 fL (7.4-10.4); Platelet Count 271 thou/uL (130-400); RBC Distribution Width 12.4 % (11.5-14.5); White Blood Cell (WBC) Count 11.8 thou/uL (4.8-10.8)
[2020-06-29 11:59] LABS: ALT (SGPT) 36 U/L (8-55); AST (SGOT) 23 U/L (5-34); Albumin 4.3 g/dL (3.5-5.0); Alkaline Phosphatase 64 U/L (40-110); Anion Gap 17 mmol/L (10-20); BUN (Urea Nitrogen) 9 mg/dL (8.9-20.6); Bilirubin, Total 0.5 mg/dL (0.2-1.2); Calc. Creatinine Clearance 0 mL/min (70-130); Calcium 9.5 mg/dL (7.8-10.44); Carbon Dioxide 22 mmol/L (22-29); Chloride 106 mmol/L (98-107); Globulin 3.4 g/dL (2.4-3.5); Glucose 92 mg/dL (70-105); Potassium 4.9 mmol/L (3.5-5.1); Protein, Total 7.7 g/dL (6.0-8.3); Sodium 140 mmol/L (136-145)
[2020-06-29] MEDS ORDERED: Acetaminophen 500 MG TAB ONE (12:22)
== END 2020-06-29 12:25 | disposition home or self-care (01) ==
LOC: MADERS 10:44
DX: G40.909 Epilepsy, unspecified, not intractable, without status epilepticus (principal); Z91.19 Patient's noncompliance with other medical treatment and regimen; J45.909 Unspecified asthma, uncomplicated; E03.9 Hypothyroidism, unspecified; I10 Essential (primary) hypertension; F17.210 Nicotine dependence, cigarettes, uncomplicated; Z79.899 Other long term (current) drug therapy
CPT/HCPCS: 36415; 80053; 84443; 85025; 99283

== ENCOUNTER 2020-08-09 05:12 | Emergency (ER) | payer BC ==
[2020-08-09 06:16] LABS: #Basophils 0.2 thou/uL (0.0-0.2); #Eosinphils 0.2 thou/uL (0.0-0.7); #Lymphocytes 2.6 thou/uL (1.20-3.40); #Monocytes 0.7 thou/uL (0.11-0.59); #Neutrophils 10.5 thou/uL (1.40-6.50); %Basophils 1.1 % (0.0-1.0); %Eosinophils 1.3 % (0.0-10.0); %Lymphocytes 18.6 % (21.0-51.0); %Monocytes 4.7 % (0.0-10.0); %Neutrophils 74.3 % (42.0-75.0); Hemoglobin 17.9 g/dL (14.0-18.0); Mean Corpuscular HGB CONC 32.9 g/dL (32.0-36.0); Mean Corpuscular Volume 94.2 fL (78.0-98.0); Mean Platelet Volume 6.9 fL (7.4-10.4); Platelet Count 242 thou/uL (130-400); RBC Distribution Width 12.5 % (11.5-14.5); Red Blood Cell (RBC) Count 5.77 mill/uL (4.70-6.10); White Blood Cell (WBC) Count 14.1 thou/uL (4.8-10.8)
[2020-08-09 06:33] LABS: ALT (SGPT) 23 U/L (8-55); AST (SGOT) 19 U/L (5-34); Albumin 4.6 g/dL (3.5-5.0); Alkaline Phosphatase 68 U/L (40-110); Anion Gap 21 mmol/L (10-20); BUN (Urea Nitrogen) 9 mg/dL (8.9-20.6); Bilirubin, Total 0.5 mg/dL (0.2-1.2); Calc. Creatinine Clearance 0 mL/min (70-130); Calcium 9.5 mg/dL (7.8-10.44); Carbon Dioxide 17 mmol/L (22-29); Chloride 106 mmol/L (98-107); Glucose 100 mg/dL (70-105); Potassium 3.7 mmol/L (3.5-5.1); Protein, Total 7.6 g/dL (6.0-8.3); Sodium 140 mmol/L (136-145)
[2020-08-09] MEDS ORDERED: Sodium Chloride 0.9% 1,000 ML BAG ONE (06:52)
[2020-08-09] MEDS ORDERED: Lorazepam 2 MG/ML VIAL ONE (07:08)
[2020-08-09 07:55] LABS: Opiate Screen Detected (NotDetected)
[2020-08-09 07:56] LABS: Amphetamine Not Detected (NotDetected); Barbiturates Screen Not Detected (NotDetected); Benzodiazepine Screen Not Detected (NotDetected); Cocaine Metabolite Screen Not Detected (NotDetected); Medtox Control Line Valid? VALID (VALID); Methadone Not Detected (NotDetected); Methamphetamine Not Detected (NotDetected); Oxycodone Screen Not Detected (NotDetected); Phencyclidine (PCP) Not Detected (NotDetected); THC/Cannabinoid Screen Not Detected (NotDetected); Tricyclic Screen Not Detected (NotDetected)
[2020-08-09 07:57] LABS: Bilirubin Negative (Negative); Blood, Urine Large (Negative); Clarity Slightly Cloudy (Clear); Glucose, Urine (Dipstick) Negative (Negative); Ketone, Urine Negative (Negative); Leukocyte Negative (Negative); Nitrite Negative (Negative); Protein, Urine (Dipstick) 100 mg/dL (Neg-Trace); Specific Gravity, Urine 1.023 (1.002-1.036); Urobilinogen 0.2 mg/dL (Less than 2)
[2020-08-09 07:58] LABS: Bacteria/HPF 1+ HPF (None Seen); RBC/HPF Greater than 50 HPF (0-3); Squamous Epithelial 0-3 HPF (0-3); WBC/HPF 0-3 HPF (0-3)
[2020-08-09 07:59] LABS: Sperm/HPF Rare HPF (None Seen)
[2020-08-09] MEDS ORDERED: Ondansetron PF 4 MG/2 ML Vial ONE (08:08)
--- NOTE | 2020-08-09 08:14 | RAD ---
EXAM: Two views chest PROVIDED CLINICAL HISTORY: Cough COMPARISON: 04/11/2020 FINDINGS: Cardiac and mediastinal silhouette appears within normal limits. Lungs appear free of significant opa city. No pleural fluid or pneumothorax apparent. The lungs appear hyperinflated, similar to prior. IMPRESSION: No evidence for an acute cardiopulmonary process.
--- NOTE | 2020-08-09 09:10 | CT ---
CT Abdomen Pelvis W Con History: Epigastric pain with nausea and vomiting Comparison: None. Findings: Lung bases are clear. No pericardial effusion. The appendix is felt to be visualized and is normal. Trace free fluid within the pelvis. The liver, spleen, pancreas, adrenal glands are unremarkable. No hydronephrosis. No retroperitoneal periaortic adenopathy. Lumbar spine is intact. Sacrum is intact. No intrahepatic or extrahepatic biliary dilatation. Punctate 2 mm calculus on the bladder side of the right ureterovesicular junction without significant right-sided hydroureteronephrosis. Impression: 1. Normal appendix. 2. Punctate 2 mm calculus on the bladder side of the right ureterovesicular junction without signific ant right-sided hydroureteronephrosis.
[2020-08-09 09:12] LABS: ALT (SGPT) 20 U/L (8-55); AST (SGOT) 18 U/L (5-34); Albumin 4.1 g/dL (3.5-5.0); Alkaline Phosphatase 61 U/L (40-110); Anion Gap 15 mmol/L (10-20); BUN (Urea Nitrogen) 9 mg/dL (8.9-20.6); Bilirubin, Total 0.4 mg/dL (0.2-1.2); Calc. Creatinine Clearance 0 mL/min (70-130); Calcium 8.6 mg/dL (7.8-10.44); Carbon Dioxide 19 mmol/L (22-29); Chloride 108 mmol/L (98-107); Globulin 2.9 g/dL (2.4-3.5); Glucose 151 mg/dL (70-105); Potassium 3.4 mmol/L (3.5-5.1); Sodium 139 mmol/L (136-145)
[2020-08-09] MEDS ORDERED: Iopamidol 370 76% 100 ML VIAL ONE (11:49)
[2020-08-10 06:00] LABS: SARS-CoV-2 PCR by NAA Not Detected (NotDetected)
== END 2020-08-09 10:18 | disposition home or self-care (01) ==
LOC: MADERS 05:12
DX: R56.9 Unspecified convulsions (principal); N13.2 Hydronephrosis with renal and ureteral calculous obstruction; Z20.822 Contact with and (suspected) exposure to COVID-19; J45.909 Unspecified asthma, uncomplicated; E03.9 Hypothyroidism, unspecified; I10 Essential (primary) hypertension; F17.210 Nicotine dependence, cigarettes, uncomplicated; Z79.899 Other long term (current) drug therapy
CPT/HCPCS: 51701; 71046; 74177; 80053; 80306; 81003; 81015; 83605; 85025; 87635; 93005; 96374; 96375; J2060; J2405; J7050; Q9967; U0003; U0005

== ENCOUNTER 2020-09-04 02:48 | Emergency (ER) | payer BC ==
[2020-09-04 03:32] LABS: Hemoglobin 18.4 g/dL (14.0-18.0); Mean Corpuscular HGB CONC 32.7 g/dL (32.0-36.0); Mean Corpuscular Hemoglobin 30.2 pg (27.0-31.0); Mean Corpuscular Volume 92.5 fL (78.0-98.0); Platelet Count 287 thou/uL (130-400); RBC Distribution Width 11.6 % (11.5-14.5); Red Blood Cell (RBC) Count 6.07 mill/uL (4.70-6.10)
[2020-09-04 03:43] LABS: ALT (SGPT) 21 U/L (8-55); AST (SGOT) 15 U/L (5-34); Albumin 4.6 g/dL (3.5-5.0); Alkaline Phosphatase 66 U/L (40-110); Anion Gap 14 mmol/L (10-20); BUN (Urea Nitrogen) 9 mg/dL (8.9-20.6); Bilirubin, Total 0.6 mg/dL (0.2-1.2); Calc. Creatinine Clearance 0 mL/min (70-130); Calcium 9.9 mg/dL (7.8-10.44); Carbon Dioxide 27 mmol/L (22-29); Chloride 105 mmol/L (98-107); Globulin 3.4 g/dL (2.4-3.5); Glucose 129 mg/dL (70-105); Potassium 4.2 mmol/L (3.5-5.1); Sodium 142 mmol/L (136-145)
[2020-09-04] MEDS ORDERED: Diphenoxylate HCl/Atropine Tablet ONE (03:57)
[2020-09-04] MEDS ORDERED: Ondansetron ODT 4 MG TAB ONE ×2 (03:57→03:58)
[2020-09-04 04:00] LABS: Band 4 % (5-11); Lymphocytes 3 % (21-51); MDiff Complete? YES; Monocytes 4 % (0-10); Neutrophil 89 % (42-75); Platelet Morphology Comment Appears Adequate; RBC Morphology Normal
[2020-09-04 17:28] LABS: SARS-CoV-2 PCR by NAA Not Detected (NotDetected)
== END 2020-09-04 04:06 | disposition home or self-care (01) ==
LOC: MADERS 02:48
DX: R19.7 Diarrhea, unspecified (principal); R11.2 Nausea with vomiting, unspecified; Z20.822 Contact with and (suspected) exposure to COVID-19; J45.909 Unspecified asthma, uncomplicated; E03.9 Hypothyroidism, unspecified; I10 Essential (primary) hypertension; F17.210 Nicotine dependence, cigarettes, uncomplicated; Z79.899 Other long term (current) drug therapy
CPT/HCPCS: 80053; 85025; 87635; 87804; 99284; Q0162; U0003; U0005

== ENCOUNTER 2020-09-12 14:37 | Emergency (ER) | payer BC ==
[2020-09-12 15:35] LABS: ALT (SGPT) 26 U/L (8-55); AST (SGOT) 17 U/L (5-34); Alkaline Phosphatase 89 U/L (40-110); Anion Gap 25 mmol/L (10-20); BUN (Urea Nitrogen) 8 mg/dL (8.9-20.6); Band 4 % (5-11); Bilirubin, Total 0.3 mg/dL (0.2-1.2); Calc. Creatinine Clearance 0 mL/min (70-130); Calcium 9.8 mg/dL (7.8-10.44); Carbon Dioxide 15 mmol/L (22-29); Chloride 104 mmol/L (98-107); Eosinophils 2 % (0-10); Glucose 128 mg/dL (70-105); Hemoglobin 19.6 g/dL (14.0-18.0); Lymphocytes 19 % (21-51); MDiff Complete? YES; Mean Corpuscular Hemoglobin 31.1 pg (27.0-31.0); Mean Corpuscular Volume 94.3 fL (78.0-98.0); Mean Platelet Volume 5.8 fL (7.4-10.4); Monocytes 2 % (0-10); Neutrophil 59 % (42-75); Platelet Count 316 thou/uL (130-400); Platelet Morphology Comment Appears Adequate; Potassium 4.1 mmol/L (3.5-5.1); RBC Distribution Width 11.6 % (11.5-14.5); Reactive Lymphocytes 14 % (0-10); Red Blood Cell (RBC) Count 6.29 mill/uL (4.70-6.10); Sodium 140 mmol/L (136-145)
[2020-09-12] MEDS ORDERED: Sodium Chloride 0.9% 1,000 ML ONE (15:49)
[2020-09-12 16:32] LABS: Bilirubin Negative (Negative); Blood, Urine Trace (Negative); Clarity Clear (Clear); Glucose, Urine (Dipstick) Negative (Negative); Ketone, Urine Negative (Negative); Leukocyte Negative (Negative); Nitrite Negative (Negative); Protein, Urine (Dipstick) Trace mg/dL (Neg-Trace); Specific Gravity, Urine 1.025 (1.005-1.030); Urobilinogen 0.2 mg/dL (Less than 2)
[2020-09-12 16:35] LABS: Bacteria/HPF Rare-Few HPF (None Seen); RBC/HPF 0-3 HPF (0-3); Sperm/HPF Rare HPF (None Seen); Squamous Epithelial 0-3 HPF (0-3); WBC/HPF 0-3 HPF (0-3)
[2020-09-12 16:41] LABS: Barbiturates Screen Detected (NotDetected); Benzodiazepine Screen Detected (NotDetected); Opiate Screen Detected (NotDetected)
[2020-09-12 16:42] LABS: Amphetamine Not Detected (NotDetected); Cocaine Metabolite Screen Not Detected (NotDetected); Medtox Control Line Valid? VALID (VALID); Methadone Not Detected (NotDetected); Methamphetamine Not Detected (NotDetected); Oxycodone Screen Not Detected (NotDetected); Phencyclidine (PCP) Not Detected (NotDetected); THC/Cannabinoid Screen Not Detected (NotDetected); Tricyclic Screen Not Detected (NotDetected)
== END 2020-09-12 16:22 | disposition home or self-care (01) ==
LOC: MADERS 14:37
DX: G40.909 Epilepsy, unspecified, not intractable, without status epilepticus (principal); Z71.6 Tobacco abuse counseling; Z91.19 Patient's noncompliance with other medical treatment and regimen; J45.909 Unspecified asthma, uncomplicated; E03.9 Hypothyroidism, unspecified; I10 Essential (primary) hypertension; F17.210 Nicotine dependence, cigarettes, uncomplicated; Z79.899 Other long term (current) drug therapy
CPT/HCPCS: 80053; 80306; 81003; 81015; 85025; 94760; 99406; J7050

== ENCOUNTER 2020-10-09 03:35 | Emergency (ER) | payer BC ==
[2020-10-09] MEDS ORDERED: Ketorolac Tromethamine 30 MG/ML VIAL ONE (03:51)
[2020-10-09] MEDS ORDERED: Ondansetron ODT 4 MG TAB ONE (03:59)
[2020-10-09] MEDS ORDERED: Clindamycin 150 MG CAP ONE (04:00)
== END 2020-10-09 04:07 | disposition home or self-care (01) ==
LOC: MADERS 03:35
DX: K04.7 Periapical abscess without sinus (principal); K02.9 Dental caries, unspecified; K03.81 Cracked tooth; E03.9 Hypothyroidism, unspecified; J45.909 Unspecified asthma, uncomplicated; F17.210 Nicotine dependence, cigarettes, uncomplicated; Z79.899 Other long term (current) drug therapy
CPT/HCPCS: 96372; 99283; J1885; Q0162

== ENCOUNTER 2020-10-30 20:39 | Emergency (ER) | payer BC ==
[2020-10-30] MEDS ORDERED: Bupivacaine PF 0.5% 30 ML VIAL ONE (20:55)
== END 2020-10-30 21:32 | disposition home or self-care (01) ==
LOC: MADERS 20:39
DX: K02.9 Dental caries, unspecified (principal); K08.89 Other specified disorders of teeth and supporting structures; F41.9 Anxiety disorder, unspecified; R51.9 Headache, unspecified; E03.9 Hypothyroidism, unspecified; I10 Essential (primary) hypertension; J45.909 Unspecified asthma, uncomplicated; F17.210 Nicotine dependence, cigarettes, uncomplicated
CPT/HCPCS: 64400; S0020

== ENCOUNTER 2020-11-01 01:12 | Emergency (ER) | payer BC ==
[2020-11-01] MEDS ORDERED: Lidocaine Viscous Sol 2% 15 ml UD Cup ONE (01:23)
[2020-11-01] MEDS ORDERED: HYDROcodone/Acetaminophen 5/325 mg Tablet ONE (01:26)
[2020-11-01] MEDS ORDERED: Ketorolac Tromethamine 60 MG/2 ML VIAL ONE (01:27)
[2020-11-01] MEDS ORDERED: Clindamycin 150 MG CAP ONE (01:27)
== END 2020-11-01 01:50 | disposition home or self-care (01) ==
LOC: MADERS 01:12
DX: K04.7 Periapical abscess without sinus (principal); E03.9 Hypothyroidism, unspecified; I10 Essential (primary) hypertension; J45.909 Unspecified asthma, uncomplicated; F17.210 Nicotine dependence, cigarettes, uncomplicated; Z79.899 Other long term (current) drug therapy
CPT/HCPCS: J1885

== ENCOUNTER 2020-11-01 22:40 | Emergency (ER) | payer BC ==
[2020-11-01] MEDS ORDERED: Bupivacaine HCl 0.5%/Epinephrine 1:200,000/PF 30 ml Vial ONE (23:31)
[2020-11-01] MEDS ORDERED: HYDROcodone/Acetaminophen 5/325 mg Tablet ONE (23:53)
[2020-11-01] MEDS ORDERED: Lidocaine Viscous Sol 2% 15 ml UD Cup ONE (23:53)
== END 2020-11-02 00:08 | disposition home or self-care (01) ==
LOC: MADERS 22:40
DX: K02.9 Dental caries, unspecified (principal); K08.89 Other specified disorders of teeth and supporting structures; E03.9 Hypothyroidism, unspecified; I10 Essential (primary) hypertension; J45.909 Unspecified asthma, uncomplicated; F17.210 Nicotine dependence, cigarettes, uncomplicated; Z79.899 Other long term (current) drug therapy
CPT/HCPCS: 64400; 96372; 99282; J1885

== ENCOUNTER 2020-11-07 05:02 | Emergency (ER) | payer BC ==
[2020-11-07] MEDS ORDERED: Lorazepam 2 MG/ML VIAL ONE (05:07)
[2020-11-07 05:23] LABS: #Basophils 0.1 thou/uL (0.0-0.2); #Eosinphils 0.3 thou/uL (0.0-0.7); #Monocytes 1.4 thou/uL (0.11-0.59); #Neutrophils 12.4 thou/uL (1.40-6.50); %Basophils 0.7 % (0.0-1.0); %Eosinophils 1.6 % (0.0-10.0); %Lymphocytes 21.9 % (21.0-51.0); %Monocytes 7.6 % (0.0-10.0); %Neutrophils 68.1 % (42.0-75.0); Mean Corpuscular HGB CONC 30.8 g/dL (32.0-36.0); Mean Corpuscular Hemoglobin 31.1 pg (27.0-31.0); Mean Corpuscular Volume 100.9 fL (78.0-98.0); Mean Platelet Volume 7.1 fL (7.4-10.4); Platelet Count 315 thou/uL (130-400); Red Blood Cell (RBC) Count 5.48 mill/uL (4.70-6.10); White Blood Cell (WBC) Count 18.2 thou/uL (4.8-10.8)
[2020-11-07 05:42] LABS: ALT (SGPT) 42 U/L (8-55); AST (SGOT) 35 U/L (5-34); Albumin 4.7 g/dL (3.5-5.0); Alkaline Phosphatase 88 U/L (40-110); BUN (Urea Nitrogen) 12 mg/dL (8.9-20.6); Bilirubin, Total 0.3 mg/dL (0.2-1.2); Calc. Creatinine Clearance 0 mL/min (70-130); Calcium 9.5 mg/dL (7.8-10.44); Chloride 104 mmol/L (98-107); Globulin 3.6 g/dL (2.4-3.5); Glucose 119 mg/dL (70-105); Potassium 3.9 mmol/L (3.5-5.1); Protein, Total 8.3 g/dL (6.0-8.3); Sodium 145 mmol/L (136-145)
[2020-11-07 05:44] LABS: Carbon Dioxide Less than 8 mmol/L (22-29)
[2020-11-07] MEDS ORDERED: Ondansetron PF 4 MG/2 ML Vial ONE (06:13)
== END 2020-11-07 06:21 | disposition home or self-care (01) ==
LOC: MADERS 05:02
DX: G40.909 Epilepsy, unspecified, not intractable, without status epilepticus (principal); E03.9 Hypothyroidism, unspecified; I10 Essential (primary) hypertension; J45.909 Unspecified asthma, uncomplicated; F17.210 Nicotine dependence, cigarettes, uncomplicated; Z91.19 Patient's noncompliance with other medical treatment and regimen
CPT/HCPCS: 36415; 80053; 83605; 85025; 96374; 96375; J2060; J2405

== ENCOUNTER 2020-12-12 11:19 | Emergency (ER) | payer BC, OTHER ==
[~2020-12-12 11:19] MED LIST: levETIRAcetam 500 MG/5 ML VIAL ONE
[2020-12-12] MEDS ORDERED: Ondansetron PF 4 MG/2 ML Vial ONE (11:30)
[2020-12-12] MEDS ORDERED: Sodium Chloride 0.9% 1,000 ML ONE (11:30)
[2020-12-12] MEDS ORDERED: levETIRAcetam 500 MG/100 ML PREMIX BAG ONE ×2 (11:58→11:59)
[2020-12-12] MEDS ORDERED: levETIRAcetam 500 MG/5 ML VIAL ONE (11:58)
[2020-12-12] MEDS ORDERED: Sodium Chloride 0.9% 100 ML ONE (11:59)
== END 2020-12-12 12:41 | disposition home or self-care (01) ==
LOC: MADERS 11:19
DX: R56.9 Unspecified convulsions (principal); S00.81XA Abrasion of other part of head, initial encounter; E03.9 Hypothyroidism, unspecified; I10 Essential (primary) hypertension; J45.909 Unspecified asthma, uncomplicated; F17.210 Nicotine dependence, cigarettes, uncomplicated; X58.XXXA Exposure to other specified factors, initial encounter
CPT/HCPCS: 70450; 94760; 96365; 96375; J1953; J2405; J3490; J7050

== ENCOUNTER 2020-12-15 02:09 | Emergency (ER) | payer BC, SELFPAY ==
[2020-12-15] MEDS ORDERED: levETIRAcetam 500 MG TAB ONE (02:27)
== END 2020-12-15 02:34 | disposition home or self-care (01) ==
LOC: MADERS 02:09
DX: R56.9 Unspecified convulsions (principal); E03.9 Hypothyroidism, unspecified; I10 Essential (primary) hypertension; J45.909 Unspecified asthma, uncomplicated; F17.210 Nicotine dependence, cigarettes, uncomplicated
CPT/HCPCS: 36416; 99284

== ENCOUNTER 2021-02-11 12:50 | Emergency (ER) | payer OTHER, SELFPAY ==
[2021-02-11 13:55] LABS: #Basophils 0.1 thou/uL (0.0-0.2); #Eosinphils 0.1 thou/uL (0.0-0.7); #Lymphocytes 1.7 thou/uL (1.20-3.40); #Monocytes 0.5 thou/uL (0.11-0.59); #Neutrophils 10.2 thou/uL (1.40-6.50); %Basophils 0.8 % (0.0-1.0); %Eosinophils 0.5 % (0.0-10.0); %Lymphocytes 13.6 % (21.0-51.0); %Monocytes 3.9 % (0.0-10.0); %Neutrophils 81.2 % (42.0-75.0); Hemoglobin 16.4 g/dL (14.0-18.0); Mean Corpuscular HGB CONC 31.9 g/dL (32.0-36.0); Mean Corpuscular Hemoglobin 30.4 pg (27.0-31.0); Mean Corpuscular Volume 95.2 fL (78.0-98.0); Mean Platelet Volume 6.5 fL (7.4-10.4); Platelet Count 288 thou/uL (130-400); RBC Distribution Width 12.2 % (11.5-14.5); Red Blood Cell (RBC) Count 5.41 mill/uL (4.70-6.10); White Blood Cell (WBC) Count 12.5 thou/uL (4.8-10.8)
[2021-02-11 14:11] LABS: ALT (SGPT) 23 U/L (8-55); AST (SGOT) 17 U/L (5-34); Albumin 4.3 g/dL (3.5-5.0); Alkaline Phosphatase 68 U/L (40-110); Anion Gap 14 mmol/L (10-20); BUN (Urea Nitrogen) 12 mg/dL (8.9-20.6); Bilirubin, Total 0.4 mg/dL (0.2-1.2); Calc. Creatinine Clearance 0 mL/min (70-130); Calcium 9.6 mg/dL (7.8-10.44); Carbon Dioxide 25 mmol/L (22-29); Chloride 104 mmol/L (98-107); Globulin 3.5 g/dL (2.4-3.5); Glucose 84 mg/dL (70-105); Potassium 4.2 mmol/L (3.5-5.1); Protein, Total 7.8 g/dL (6.0-8.3); Sodium 139 mmol/L (136-145)
[2021-02-11 14:12] LABS: Acetaminophen Less than 6.0 mcg/mL (10.0-30.0); Alcohol Less than 10 mg/dL (Less than 10); CK (CPK) 159 U/L (30-200); Salicylate Less than 8.0 mg/dL (15.0-30.0)
[2021-02-11 14:14] LABS: Amphetamine Not Detected (NotDetected); Barbiturates Screen Not Detected (NotDetected); Benzodiazepine Screen Not Detected (NotDetected); Cocaine Metabolite Screen Not Detected (NotDetected); Medtox Control Line Valid? VALID (VALID); Methadone Not Detected (NotDetected); Methamphetamine Not Detected (NotDetected); Opiate Screen Not Detected (NotDetected); Oxycodone Screen Not Detected (NotDetected); Phencyclidine (PCP) Not Detected (NotDetected); THC/Cannabinoid Screen Detected (NotDetected); Tricyclic Screen Not Detected (NotDetected)
[2021-02-11 14:16] LABS: Bilirubin Negative (Negative); Blood, Urine Small (Negative); Clarity Clear (Clear); Glucose, Urine (Dipstick) Negative (Negative); Ketone, Urine Negative (Negative); Leukocyte Negative (Negative); Nitrite Negative (Negative); Protein, Urine (Dipstick) 30 mg/dL (Neg-Trace); Specific Gravity, Urine 1.017 (1.002-1.036); Urobilinogen 0.2 mg/dL (Less than 2); pH, Urine 5.5 (5.0-9.0)
[2021-02-11 14:17] LABS: Bacteria/HPF Rare-Few HPF (None Seen); RBC/HPF 0-3 HPF (0-3); Squamous Epithelial 0-3 HPF (0-3); WBC/HPF 0-3 HPF (0-3)
== END 2021-02-11 15:55 | disposition home or self-care (01) ==
LOC: MADERS 12:50
DX: R56.9 Unspecified convulsions (principal); E03.9 Hypothyroidism, unspecified; I10 Essential (primary) hypertension; J45.909 Unspecified asthma, uncomplicated; F17.210 Nicotine dependence, cigarettes, uncomplicated; Z79.899 Other long term (current) drug therapy
CPT/HCPCS: 36415; 70450; 71045; 72125; 80053; 80306; 80307; 81003; 81015; 82550; 85025

== ENCOUNTER 2021-02-21 14:01 | Emergency (ER) | payer OTHER, SELFPAY ==
[2021-02-21] MEDS ORDERED: Ondansetron PF 4 MG/2 ML Vial ONE (14:15)
[2021-02-21] MEDS ORDERED: levETIRAcetam 500 MG/100 ML PREMIX BAG ONE (14:34)
[2021-02-21 14:36] LABS: #Basophils 0.2 thou/uL (0.0-0.2); #Eosinphils 0.1 thou/uL (0.0-0.7); #Lymphocytes 2.5 thou/uL (1.20-3.40); #Monocytes 0.8 thou/uL (0.11-0.59); #Neutrophils 13.5 thou/uL (1.40-6.50); %Basophils 1.3 % (0.0-1.0); %Eosinophils 0.4 % (0.0-10.0); %Lymphocytes 14.6 % (21.0-51.0); %Monocytes 4.5 % (0.0-10.0); %Neutrophils 79.1 % (42.0-75.0); Mean Corpuscular HGB CONC 31.6 g/dL (32.0-36.0); Mean Corpuscular Hemoglobin 30.6 pg (27.0-31.0); Mean Corpuscular Volume 96.8 fL (78.0-98.0); Mean Platelet Volume 7.4 fL (7.4-10.4); Platelet Count 289 thou/uL (130-400); RBC Distribution Width 12.6 % (11.5-14.5); Red Blood Cell (RBC) Count 5.55 mill/uL (4.70-6.10); White Blood Cell (WBC) Count 17.1 thou/uL (4.8-10.8)
[2021-02-21 14:50] LABS: ALT (SGPT) 18 U/L (8-55); AST (SGOT) 17 U/L (5-34); Albumin 4.5 g/dL (3.5-5.0); Alkaline Phosphatase 64 U/L (40-110); Anion Gap 21 mmol/L (10-20); BUN (Urea Nitrogen) 10 mg/dL (8.9-20.6); Bilirubin, Total 0.5 mg/dL (0.2-1.2); Calc. Creatinine Clearance 0 mL/min (70-130); Calcium 9.6 mg/dL (7.8-10.44); Carbon Dioxide 16 mmol/L (22-29); Chloride 105 mmol/L (98-107); Globulin 3.4 g/dL (2.4-3.5); Glucose 142 mg/dL (70-105); Magnesium 2.4 mg/dL (1.6-2.6); Potassium 4.2 mmol/L (3.5-5.1); Protein, Total 7.9 g/dL (6.0-8.3); Sodium 138 mmol/L (136-145)
[2021-02-21 14:51] LABS: Acetaminophen Less than 6.0 mcg/mL (10.0-30.0); Alcohol Less than 10 mg/dL (Less than 10); Salicylate Less than 8.0 mg/dL (15.0-30.0)
[2021-02-22 07:43] LABS: SARS-CoV-2 PCR by NAA Not Detected (NotDetected)
== END 2021-02-21 14:48 | disposition home or self-care (01) ==
LOC: MADERS 14:01
DX: G40.909 Epilepsy, unspecified, not intractable, without status epilepticus (principal); Z20.822 Contact with and (suspected) exposure to COVID-19; E03.9 Hypothyroidism, unspecified; I10 Essential (primary) hypertension; J45.909 Unspecified asthma, uncomplicated; F17.210 Nicotine dependence, cigarettes, uncomplicated
CPT/HCPCS: 80053; 80177; 80307; 83605; 83735; 85025; 96365; 96375; J1953; J2405; U0003; U0005

== ENCOUNTER 2021-04-20 17:06 | Emergency (ER) | payer BC, OTHER | END 2021-04-20 18:13 | disposition home or self-care (01) | LOC: MADERS 17:06 | DX: R56.9 Unspecified convulsions (principal); E03.9 Hypothyroidism, unspecified; I10 Essential (primary) hypertension; J45.909 Unspecified asthma, uncomplicated; F17.210 Nicotine dependence, cigarettes, uncomplicated; Z79.899 Other long term (current) drug therapy | CPT/HCPCS: 99284 ==

== ENCOUNTER 2021-05-21 10:45 | Emergency (ER) | payer BC ==
[2021-05-21] MEDS ORDERED: Acetaminophen 500 MG TAB ONE (10:58)
[2021-05-21] MEDS ORDERED: levETIRAcetam 500 MG/100 ML PREMIX BAG ONE (10:58)
[2021-05-21] MEDS ORDERED: Ibuprofen 800 MG TAB ONE (12:18)
== END 2021-05-21 12:26 | disposition home or self-care (01) ==
LOC: MADERS 10:45
DX: R56.9 Unspecified convulsions (principal); Z91.19 Patient's noncompliance with other medical treatment and regimen; E03.9 Hypothyroidism, unspecified; I10 Essential (primary) hypertension; J45.909 Unspecified asthma, uncomplicated; F17.210 Nicotine dependence, cigarettes, uncomplicated
CPT/HCPCS: 96365; J1953

== ENCOUNTER 2021-10-05 03:11 | Emergency (ER) | payer BC ==
[2021-10-05] MEDS ORDERED: Lorazepam 2 MG/ML VIAL ONE (03:47)
[2021-10-05] MEDS ORDERED: levETIRAcetam 500 MG/5 ML VIAL ONE (03:58)
[2021-10-05 04:26] LABS: ALT (SGPT) 18 U/L (8-55); AST (SGOT) 24 U/L (5-34); Acetaminophen Less than 10.0 mcg/mL (10.0-30.0); Albumin 4.8 g/dL (3.5-5.0); Alcohol Less than 10 mg/dL (Less than 10); Alkaline Phosphatase 71 U/L (40-110); BUN (Urea Nitrogen) 15 mg/dL (8.9-20.6); Bilirubin, Total 0.7 mg/dL (0.2-1.2); Calc. Creatinine Clearance 0 mL/min (70-130); Chloride 107 mmol/L (98-107); Globulin 3.7 g/dL (2.4-3.5); Glucose 109 mg/dL (70-105); Potassium 3.7 mmol/L (3.5-5.1); Protein, Total 8.5 g/dL (6.0-8.3); Salicylate Less than 8.0 mg/dL (15.0-30.0); Sodium 144 mmol/L (136-145)
[2021-10-05 04:39] LABS: Carbon Dioxide Less than 8 mmol/L (22-29)
[2021-10-05 04:48] LABS: Amphetamine Not Detected (NotDetected); Barbiturates Screen Not Detected (NotDetected); Benzodiazepine Screen Not Detected (NotDetected); Cocaine Metabolite Screen Not Detected (NotDetected); Medtox Control Line Valid? VALID (VALID); Methadone Not Detected (NotDetected); Methamphetamine Not Detected (NotDetected); Opiate Screen Detected (NotDetected); Oxycodone Screen Not Detected (NotDetected); Phencyclidine (PCP) Not Detected (NotDetected); THC/Cannabinoid Screen Detected (NotDetected); Tricyclic Screen Not Detected (NotDetected)
[2021-10-05 04:57] LABS: Band 1 % (5-11); Eosinophils 1 % (0-10); Hemoglobin 17.4 g/dL (14.0-18.0); Lymphocytes 21 % (21-51); MDiff Complete? YES; Mean Corpuscular HGB CONC 31.4 g/dL (32.0-36.0); Mean Corpuscular Hemoglobin 30.1 pg (27.0-31.0); Mean Platelet Volume 6.6 fL (7.4-10.4); Monocytes 8 % (0-10); Neutrophil 55 % (42-75); Platelet Count 341 thou/uL (130-400); RBC Distribution Width 12.6 % (11.5-14.5); RBC Morphology Normal; Reactive Lymphocytes 14 % (0-10); Red Blood Cell (RBC) Count 5.77 mill/uL (4.70-6.10); White Blood Cell (WBC) Count 19.4 thou/uL (4.8-10.8)
[2021-10-05] MEDS ORDERED: Sodium Chloride 0.9% 1,000 ML BAG ONE (06:29)
== END 2021-10-05 08:49 | disposition home or self-care (01) ==
LOC: MADERS 03:11
DX: G40.909 Epilepsy, unspecified, not intractable, without status epilepticus (principal); F12.10 Cannabis abuse, uncomplicated; Z79.899 Other long term (current) drug therapy; E03.9 Hypothyroidism, unspecified; I10 Essential (primary) hypertension; J45.909 Unspecified asthma, uncomplicated; F17.210 Nicotine dependence, cigarettes, uncomplicated
CPT/HCPCS: 80053; 80306; 80307; 83735; 85025; 93005; 96365; 96372; J1953; J2060; J7050

== ENCOUNTER 2021-11-18 23:37 | Emergency (ER) | payer BC, OTHER ==
[2021-11-18] MEDS ORDERED: Lorazepam 2 MG/ML VIAL ONE (23:52)
[2021-11-18] MEDS ORDERED: levETIRAcetam 500 MG/5 ML VIAL ONE (23:52)
[2021-11-18] MEDS ORDERED: Sodium Chloride 0.9% 100 ML ONE (23:53)
[2021-11-19] MEDS ORDERED: Ondansetron PF 4 MG/2 ML Vial ONE (01:28)
== END 2021-11-19 01:42 | disposition home or self-care (01) ==
LOC: MADERS 23:37
DX: G40.909 Epilepsy, unspecified, not intractable, without status epilepticus (principal); E03.9 Hypothyroidism, unspecified; J45.909 Unspecified asthma, uncomplicated; I10 Essential (primary) hypertension; F17.210 Nicotine dependence, cigarettes, uncomplicated; Z79.899 Other long term (current) drug therapy
CPT/HCPCS: 36415; 80053; 85025; 96365; 96375; J1953; J2060; J2405

== ENCOUNTER 2021-11-20 10:51 | Emergency (ER) | payer BC, OTHER ==
[2021-11-20 13:06] LABS: #Basophils 0.1 thou/uL (0.0-0.2); #Lymphocytes 1.7 thou/uL (1.20-3.40); #Monocytes 1.2 thou/uL (0.11-0.59); #Neutrophils 16.9 thou/uL (1.40-6.50); %Basophils 0.5 % (0.0-1.0); %Lymphocytes 8.6 % (21.0-51.0); %Monocytes 5.9 % (0.0-10.0); Hemoglobin 17.5 g/dL (14.0-18.0); Mean Corpuscular HGB CONC 31.6 g/dL (32.0-36.0); Mean Corpuscular Hemoglobin 28.9 pg (27.0-31.0); Mean Corpuscular Volume 91.3 fL (78.0-98.0); Mean Platelet Volume 7.9 fL (7.4-10.4); Platelet Count 289 thou/uL (130-400); RBC Distribution Width 12.7 % (11.5-14.5); Red Blood Cell (RBC) Count 6.06 mill/uL (4.70-6.10); White Blood Cell (WBC) Count 19.9 thou/uL (4.8-10.8)
[2021-11-20 13:24] LABS: Acetaminophen Less than 10.0 mcg/mL (10.0-30.0); Alcohol Less than 10 mg/dL (Less than 10); Anion Gap 17 mmol/L (10-20); Salicylate Less than 8.0 mg/dL (15.0-30.0)
[2021-11-20 13:30] LABS: ALT (SGPT) 23 U/L (8-55); AST (SGOT) 27 U/L (5-34); Albumin 4.7 g/dL (3.5-5.0); Alkaline Phosphatase 63 U/L (40-110); BUN (Urea Nitrogen) 21 mg/dL (8.9-20.6); Bilirubin, Total 0.8 mg/dL (0.2-1.2); Calc. Creatinine Clearance 0 mL/min (70-130); Calcium 9.8 mg/dL (7.8-10.44); Carbon Dioxide 23 mmol/L (22-29); Chloride 104 mmol/L (98-107); Glucose 100 mg/dL (70-105); Potassium 4.3 mmol/L (3.5-5.1); Protein, Total 8.7 g/dL (6.0-8.3); Sodium 140 mmol/L (136-145)
[2021-11-20 13:34] LABS: Amphetamine Not Detected (NotDetected); Barbiturates Screen Not Detected (NotDetected); Benzodiazepine Screen Not Detected (NotDetected); Cocaine Metabolite Screen Not Detected (NotDetected); Medtox Control Line Valid? VALID (VALID); Methadone Not Detected (NotDetected); Methamphetamine Not Detected (NotDetected); Opiate Screen Not Detected (NotDetected); Oxycodone Screen Not Detected (NotDetected); Phencyclidine (PCP) Not Detected (NotDetected); THC/Cannabinoid Screen Detected (NotDetected); Tricyclic Screen Not Detected (NotDetected)
[2021-11-20 18:50] LABS: SARS-CoV-2 NAA Rapid Test Not Detected (NotDetected)
== END 2021-11-20 23:00 | disposition left against medical advice (07) ==
LOC: MADERS 10:51
DX: S80.211A Abrasion, right knee, initial encounter (principal); S40.211A Abrasion of right shoulder, initial encounter; W19.XXXA Unspecified fall, initial encounter; F23 Brief psychotic disorder; G40.909 Epilepsy, unspecified, not intractable, without status epilepticus; Z20.822 Contact with and (suspected) exposure to COVID-19; E03.9 Hypothyroidism, unspecified; I10 Essential (primary) hypertension; J45.909 Unspecified asthma, uncomplicated; F17.210 Nicotine dependence, cigarettes, uncomplicated
CPT/HCPCS: 70450; 80053; 80306; 80307; 84146; 84443; 85025; U0002

== ENCOUNTER 2022-02-17 23:11 | Emergency (ER) | payer BC ==
[2022-02-17] MEDS ORDERED: Ketorolac Tromethamine 60 MG/2 ML VIAL ONE (23:36)
[2022-02-17] MEDS ORDERED: Clindamycin 150 MG CAP ONE (23:42)
[2022-02-17] MEDS ORDERED: HYDROcodone/Acetaminophen 5/325 mg Tablet ONE (23:43)
== END 2022-02-18 | disposition home or self-care (01) ==
LOC: MADERS 23:11
DX: K02.9 Dental caries, unspecified (principal); I10 Essential (primary) hypertension; E03.9 Hypothyroidism, unspecified; J45.909 Unspecified asthma, uncomplicated; F17.210 Nicotine dependence, cigarettes, uncomplicated; Z79.899 Other long term (current) drug therapy
CPT/HCPCS: 96372; 99282; J1885

== ENCOUNTER 2022-03-07 10:57 | Outpatient (CLI) | payer BC | END 2022-03-07 10:58 | disposition home or self-care (01) | LOC: MADLABBHPM 10:57 | PROVIDERS: ATTEND Family Medicine | DX: G40.909 Epilepsy, unspecified, not intractable, without status epilepticus (principal) | CPT/HCPCS: 80177; 80185 ==

== ENCOUNTER 2022-03-13 13:56 | Emergency (ER) | payer OTHER, BC ==
[2022-03-13 15:24] LABS: ALT (SGPT) 20 U/L (8-55); AST (SGOT) 18 U/L (5-34); Albumin 4.4 g/dL (3.5-5.0); Alkaline Phosphatase 64 U/L (40-110); Anion Gap 17 mmol/L (10-20); BUN (Urea Nitrogen) 8 mg/dL (8.9-20.6); Bilirubin, Total 0.4 mg/dL (0.2-1.2); Calc. Creatinine Clearance 0 mL/min (70-130); Calcium 9.8 mg/dL (7.8-10.44); Carbon Dioxide 19 mmol/L (22-29); Chloride 108 mmol/L (98-107); Estimated GFR 91; Globulin 3.3 g/dL (2.4-3.5); Glucose 90 mg/dL (70-105); Potassium 4.2 mmol/L (3.5-5.1); Protein, Total 7.7 g/dL (6.0-8.3); Sodium 140 mmol/L (136-145)
[2022-03-13 15:25] LABS: Band 1 % (5-11); Hemoglobin 15.5 g/dL (14.0-18.0); Lymphocytes 6 % (21-51); MDiff Complete? YES; Mean Corpuscular HGB CONC 32.2 g/dL (32.0-36.0); Mean Corpuscular Hemoglobin 29.5 pg (27.0-31.0); Mean Corpuscular Volume 91.6 fL (78.0-98.0); Mean Platelet Volume 7.6 fL (7.4-10.4); Monocytes 3 % (0-10); Neutrophil 85 % (42-75); Platelet Count 245 thou/uL (130-400); Platelet Morphology Comment Appears Adequate; RBC Morphology Normal; Reactive Lymphocytes 5 % (0-10); Red Blood Cell (RBC) Count 5.27 mill/uL (4.70-6.10); White Blood Cell (WBC) Count 11.7 thou/uL (4.8-10.8)
[2022-03-13] MEDS ORDERED: Bacitracin 1 PK ONE (15:31)
[2022-03-13] MEDS ORDERED: levETIRAcetam 500 MG/5 ML VIAL ONE (15:31)
[2022-03-13] MEDS ORDERED: Lorazepam 2 MG/ML VIAL ONE (15:53)
[2022-03-13 16:15] LABS: Barbiturates Screen Detected (NotDetected); Benzodiazepine Screen Detected (NotDetected); Opiate Screen Detected (NotDetected); THC/Cannabinoid Screen Detected (NotDetected)
[2022-03-13 16:16] LABS: Amphetamine Not Detected (NotDetected); Bilirubin Negative (Negative); Blood, Urine Small (Negative); Clarity Clear (Clear); Cocaine Metabolite Screen Not Detected (NotDetected); Glucose, Urine (Dipstick) Negative (Negative); Ketone, Urine 15 mg/dL (Negative); Leukocyte Negative (Negative); Medtox Control Line Valid? VALID (VALID); Methadone Not Detected (NotDetected); Methamphetamine Not Detected (NotDetected); Nitrite Negative (Negative); Oxycodone Screen Not Detected (NotDetected); Phencyclidine (PCP) Not Detected (NotDetected); Protein, Urine (Dipstick) 30 mg/dL (Neg-Trace); Tricyclic Screen Not Detected (NotDetected); Urobilinogen 0.2 mg/dL (Less than 2)
[2022-03-13 16:18] LABS: Bacteria/HPF Rare-Few HPF (None Seen); RBC/HPF 0-3 HPF (0-3); Squamous Epithelial 0-3 HPF (0-3); WBC/HPF None Seen HPF (0-3)
[2022-03-13 16:19] LABS: Mucous/LPF 1+ LPF (<2+)
[2022-03-13] MEDS ORDERED: Ondansetron PF 4 MG/2 ML Vial ONE (16:41)
== END 2022-03-13 18:13 | disposition home or self-care (01) ==
LOC: MADERS 13:56
DX: S00.83XA Contusion of other part of head, initial encounter (principal); S60.511A Abrasion of right hand, initial encounter; G40.909 Epilepsy, unspecified, not intractable, without status epilepticus; I10 Essential (primary) hypertension; E03.9 Hypothyroidism, unspecified; F17.210 Nicotine dependence, cigarettes, uncomplicated; V89.9XXA Person injured in unspecified vehicle accident, initial encounter
CPT/HCPCS: 36416; 70450; 80053; 80185; 80306; 81003; 81015; 85025; 96374; 96375; J1953; J2060; J2405

== ENCOUNTER 2022-05-08 00:29 | Emergency (ER) | payer BC ==
[2022-05-08] MEDS ORDERED: Ibuprofen 600 MG TAB ONE (01:20)
[2022-05-08] MEDS ORDERED: Benzonatate 100 MG CAP ONE (02:01)
[2022-05-08] MEDS ORDERED: Ondansetron ODT 4 MG TAB ONE (02:01)
== END 2022-05-08 02:19 | disposition home or self-care (01) ==
LOC: MADERS 00:29
DX: J06.9 Acute upper respiratory infection, unspecified (principal); R11.2 Nausea with vomiting, unspecified; F17.210 Nicotine dependence, cigarettes, uncomplicated; E03.9 Hypothyroidism, unspecified; I10 Essential (primary) hypertension; Z20.822 Contact with and (suspected) exposure to COVID-19; Z79.899 Other long term (current) drug therapy
CPT/HCPCS: 87081; 87430; 87804; 99284; Q0162; U0003; U0005

== ENCOUNTER 2022-05-12 04:06 | Emergency (ER) | payer BC ==
[2022-05-12 04:56] LABS: #Basophils 0.1 thou/uL (0.0-0.2); #Eosinphils 0.1 thou/uL (0.0-0.7); #Lymphocytes 2.6 thou/uL (1.20-3.40); #Monocytes 0.6 thou/uL (0.11-0.59); #Neutrophils 5.9 thou/uL (1.40-6.50); %Basophils 0.6 % (0.0-1.0); %Eosinophils 1.3 % (0.0-10.0); %Lymphocytes 28.2 % (21.0-51.0); %Monocytes 6.1 % (0.0-10.0); %Neutrophils 63.9 % (42.0-75.0); Hemoglobin 13.7 g/dL (14.0-18.0); Mean Corpuscular HGB CONC 34.3 g/dL (32.0-36.0); Mean Corpuscular Hemoglobin 30.8 pg (27.0-31.0); Mean Corpuscular Volume 89.8 fl (78.0-98.0); Mean Platelet Volume 5.5 fL (7.4-10.4); Platelet Count 484 10x3/uL (130-400); RBC Distribution Width 11.4 % (11.5-14.5); Red Blood Cell (RBC) Count 4.44 mill/uL (4.70-6.10); White Blood Cell (WBC) Count 9.3 10x3/uL (4.8-10.8)
[2022-05-12 05:13] LABS: ALT (SGPT) 34 U/L (8-55); AST (SGOT) 19 U/L (5-34); Albumin 3.4 g/dL (3.5-5.0); Alkaline Phosphatase 80 U/L (40-110); Anion Gap 10 mmol/L (10-20); BUN (Urea Nitrogen) 11 mg/dL (8.9-20.6); Bilirubin, Total 0.2 mg/dL (0.2-1.2); Calc. Creatinine Clearance 0 mL/min (70-130); Calcium 9.2 mg/dL (7.8-10.44); Carbon Dioxide 28 mmol/L (22-29); Chloride 106 mmol/L (98-107); Estimated GFR 119; Globulin 3.4 g/dL (2.4-3.5); Glucose 108 mg/dL (70-105); Protein, Total 6.8 g/dL (6.0-8.3); Sodium 140 mmol/L (136-145)
[2022-05-12 05:14] LABS: Acetaminophen Less than 10.0 mcg/mL (10.0-30.0); Alcohol Less than 10 mg/dL (Less than 10); Salicylate Less than 8.0 mg/dL (15.0-30.0)
[2022-05-12 05:16] LABS: Amphetamine Not Detected (NotDetected); Barbiturates Screen Detected (NotDetected); Benzodiazepine Screen Detected (NotDetected); Cocaine Metabolite Screen Not Detected (NotDetected); Medtox Control Line Valid? VALID (VALID); Methadone Not Detected (NotDetected); Methamphetamine Not Detected (NotDetected); Opiate Screen Not Detected (NotDetected); Oxycodone Screen Not Detected (NotDetected); Phencyclidine (PCP) Not Detected (NotDetected); THC/Cannabinoid Screen Detected (NotDetected); Tricyclic Screen Not Detected (NotDetected)
== END 2022-05-12 06:00 | disposition home or self-care (01) ==
LOC: MADERS 04:06
DX: F41.9 Anxiety disorder, unspecified (principal); E03.9 Hypothyroidism, unspecified; I10 Essential (primary) hypertension; F17.210 Nicotine dependence, cigarettes, uncomplicated
CPT/HCPCS: 80053; 80306; 80307; 84443; 85025; 99284

== ENCOUNTER 2022-06-04 12:16 | Emergency (ER) | payer BC ==
[2022-06-04 13:03] LABS: #Basophils 0.1 thou/uL (0.0-0.2); #Lymphocytes 1.4 thou/uL (1.20-3.40); #Monocytes 0.6 thou/uL (0.11-0.59); #Neutrophils 9.7 thou/uL (1.40-6.50); %Basophils 0.8 % (0.0-1.0); %Eosinophils 0.4 % (0.0-10.0); %Neutrophils 81.7 % (42.0-75.0); Hemoglobin 15.6 g/dL (14.0-18.0); Mean Corpuscular HGB CONC 32.4 g/dL (32.0-36.0); Mean Corpuscular Hemoglobin 30.3 pg (27.0-31.0); Mean Corpuscular Volume 93.7 fl (78.0-98.0); Mean Platelet Volume 6.4 fL (7.4-10.4); Platelet Count 312 10x3/uL (130-400); RBC Distribution Width 13.3 % (11.5-14.5); Red Blood Cell (RBC) Count 5.13 mill/uL (4.70-6.10); White Blood Cell (WBC) Count 11.9 10x3/uL (4.8-10.8)
[2022-06-04] MEDS ORDERED: Bacitracin 1 PK ONE (13:05)
[2022-06-04] MEDS ORDERED: levETIRAcetam 500 MG/5 ML VIAL ONE (13:05)
[2022-06-04] MEDS ORDERED: Lidocaine 1% w/Epinephrine 1:100K 20 ML VIAL ONE (13:05)
[2022-06-04 13:10] LABS: Bilirubin Negative (Negative); Blood, Urine Moderate (Negative); Clarity Clear (Clear); Glucose, Urine (Dipstick) Negative (Negative); Ketone, Urine Negative (Negative); Leukocyte Negative (Negative); Nitrite Negative (Negative); Protein, Urine (Dipstick) 100 mg/dL (Neg-Trace); Urobilinogen 0.2 mg/dL (Less than 2)
[2022-06-04 13:13] LABS: Specific Gravity, Urine 1.017 (1.002-1.036)
[2022-06-04 13:17] LABS: Anion Gap 22 mmol/L (10-20); BUN (Urea Nitrogen) 14 mg/dL (8.9-20.6); Calc. Creatinine Clearance 0 mL/min (70-130); Calcium 9.5 mg/dL (7.8-10.44); Carbon Dioxide 17 mmol/L (22-29); Chloride 106 mmol/L (98-107); Estimated GFR 101; Glucose 65 mg/dL (70-105); Sodium 140 mmol/L (136-145)
[2022-06-04 13:17] LABS: Bacteria/HPF Rare-Few HPF (None Seen); Mucous/LPF 1+ LPF (<2+); Squamous Epithelial 0-3 HPF (0-3); WBC/HPF None Seen HPF (0-3)
[2022-06-04 13:18] LABS: Amphetamine Not Detected (NotDetected); Barbiturates Screen Detected (NotDetected); Benzodiazepine Screen Not Detected (NotDetected); Cocaine Metabolite Screen Not Detected (NotDetected); Medtox Control Line Valid? VALID (VALID); Methadone Not Detected (NotDetected); Methamphetamine Not Detected (NotDetected); Opiate Screen Not Detected (NotDetected); Oxycodone Screen Not Detected (NotDetected); Phencyclidine (PCP) Not Detected (NotDetected); THC/Cannabinoid Screen Not Detected (NotDetected); Tricyclic Screen Not Detected (NotDetected)
[2022-06-04] MEDS ORDERED: Phenytoin Extended Release 100 MG CAP ONE (13:33)
== END 2022-06-04 14:40 | disposition home or self-care (01) ==
LOC: MADERS 12:16
DX: S09.90XA Unspecified injury of head, initial encounter (principal); S01.111A Laceration without foreign body of right eyelid and periocular area, initial encounter; R56.9 Unspecified convulsions; I10 Essential (primary) hypertension; F17.210 Nicotine dependence, cigarettes, uncomplicated; W18.30XA Fall on same level, unspecified, initial encounter; Z79.899 Other long term (current) drug therapy
CPT/HCPCS: 12011; 70450; 80048; 80185; 80306; 81003; 81015; 84146; 85025; 96365; J1953

== ENCOUNTER 2022-06-15 11:38 | Emergency (ER) | payer BC | END 2022-06-15 12:17 | disposition home or self-care (01) | LOC: MADERS 11:38 | DX: S01.111D Laceration without foreign body of right eyelid and periocular area, subsequent encounter (principal); E03.9 Hypothyroidism, unspecified; I10 Essential (primary) hypertension; F17.210 Nicotine dependence, cigarettes, uncomplicated; J45.909 Unspecified asthma, uncomplicated; W19.XXXD Unspecified fall, subsequent encounter; Z79.899 Other long term (current) drug therapy ==

== ENCOUNTER 2022-07-03 11:38 | Emergency (ER) | payer BC, SELFPAY ==
[2022-07-03 12:50] LABS: Bilirubin Small (Negative); Blood, Urine Negative (Negative); Clarity Clear (Clear); Glucose, Urine (Dipstick) Negative (Negative); Ketone, Urine 40 mg/dL (Negative); Leukocyte Negative (Negative); Nitrite Negative (Negative); Protein, Urine (Dipstick) 30 mg/dL (Neg-Trace); pH, Urine 6.5 (5.0-9.0)
[2022-07-03 12:53] LABS: Specific Gravity, Urine 1.031 (1.002-1.036)
[2022-07-03 12:59] LABS: Amphetamine Not Detected (NotDetected); Barbiturates Screen Detected (NotDetected); Benzodiazepine Screen Not Detected (NotDetected); Cocaine Metabolite Screen Not Detected (NotDetected); Medtox Control Line Valid? VALID (VALID); Methadone Not Detected (NotDetected); Methamphetamine Not Detected (NotDetected); Opiate Screen Not Detected (NotDetected); Oxycodone Screen Not Detected (NotDetected); Phencyclidine (PCP) Not Detected (NotDetected); THC/Cannabinoid Screen Detected (NotDetected); Tricyclic Screen Not Detected (NotDetected)
[2022-07-03 13:00] LABS: Bacteria/HPF Rare-Few HPF (None Seen); RBC/HPF 0-3 HPF (0-3); Squamous Epithelial 0-3 HPF (0-3); WBC/HPF 0-3 HPF (0-3)
[2022-07-03 13:01] LABS: Acetaminophen Less than 10.0 mcg/mL (10.0-30.0); Alcohol Less than 10 mg/dL (Less than 10); Salicylate Less than 8.0 mg/dL (15.0-30.0)
[2022-07-03 13:03] LABS: ALT (SGPT) 22 U/L (8-55); AST (SGOT) 22 U/L (5-34); Albumin 3.9 g/dL (3.5-5.0); Alkaline Phosphatase 64 U/L (40-110); Anion Gap 14 mmol/L (10-20); BUN (Urea Nitrogen) 10 mg/dL (8.9-20.6); Bilirubin, Total 0.7 mg/dL (0.2-1.2); Calc. Creatinine Clearance 0 mL/min (70-130); Calcium 8.9 mg/dL (7.8-10.44); Carbon Dioxide 22 mmol/L (22-29); Chloride 107 mmol/L (98-107); Estimated GFR 119; Glucose 120 mg/dL (70-105); Potassium 3.6 mmol/L (3.5-5.1); Protein, Total 6.9 g/dL (6.0-8.3); Sodium 139 mmol/L (136-145)
[2022-07-03 13:31] LABS: Hemoglobin 14.8 g/dL (14.0-18.0); Mean Corpuscular HGB CONC 33.9 g/dL (32.0-36.0); Mean Corpuscular Hemoglobin 30.4 pg (27.0-31.0); Mean Corpuscular Volume 89.4 fl (78.0-98.0); Mean Platelet Volume 6.8 fL (7.4-10.4); Platelet Count 237 10x3/uL (130-400); Red Blood Cell (RBC) Count 4.88 mill/uL (4.70-6.10); White Blood Cell (WBC) Count 7.3 10x3/uL (4.8-10.8)
[2022-07-03 13:32] LABS: Lymphocytes 5 % (21-51); MDiff Complete? YES; Monocytes 2 % (0-10); Neutrophil 84 % (42-75); Platelet Morphology Comment Appears Adequate; RBC Morphology Normal; Reactive Lymphocytes 9 % (0-10)
[2022-07-03] MEDS ORDERED: Lorazepam 2 MG/ML VIAL ONE (14:00)
== END 2022-07-03 16:49 | disposition home or self-care (01) ==
LOC: MADERS 11:38
DX: F20.9 Schizophrenia, unspecified (principal); I10 Essential (primary) hypertension; Z79.899 Other long term (current) drug therapy; F17.210 Nicotine dependence, cigarettes, uncomplicated
CPT/HCPCS: 80053; 80306; 80307; 81003; 81015; 85025; 87804; 96374; J2060

== ENCOUNTER 2022-08-03 12:25 | Emergency (ER) | payer SELFPAY ==
[~2022-08-03 12:25] MED LIST changes: +Sodium Chloride 0.9% 100 ML BAG ONE; -levETIRAcetam 500 MG/5 ML VIAL ONE
[2022-08-03] MEDS ORDERED: Sodium Chloride 0.9% 1,000 ML ONE (12:36)
[2022-08-03] MEDS ORDERED: levETIRAcetam 500 MG/5 ML VIAL ONE (12:36)
[2022-08-03] MEDS ORDERED: Lorazepam 2 MG/ML VIAL ONE (12:44)
[2022-08-03 12:55] LABS: #Basophils 0.1 thou/uL (0.0-0.2); #Eosinphils 0.1 thou/uL (0.0-0.7); #Lymphocytes 3.2 thou/uL (1.20-3.40); #Monocytes 0.9 thou/uL (0.11-0.59); #Neutrophils 9.9 thou/uL (1.40-6.50); %Basophils 0.5 % (0.0-1.0); %Eosinophils 0.7 % (0.0-10.0); %Lymphocytes 22.7 % (21.0-51.0); %Monocytes 6.4 % (0.0-10.0); %Neutrophils 69.8 % (42.0-75.0); Hemoglobin 16.5 g/dL (14.0-18.0); Mean Corpuscular HGB CONC 31.9 g/dL (32.0-36.0); Mean Corpuscular Hemoglobin 30.4 pg (27.0-31.0); Mean Corpuscular Volume 95.3 fl (78.0-98.0); Mean Platelet Volume 6.1 fL (7.4-10.4); Platelet Count 301 10x3/uL (130-400); RBC Distribution Width 12.8 % (11.5-14.5); Red Blood Cell (RBC) Count 5.42 mill/uL (4.70-6.10); White Blood Cell (WBC) Count 14.1 10x3/uL (4.8-10.8)
[2022-08-03 13:15] LABS: ALT (SGPT) 27 U/L (8-55); AST (SGOT) 20 U/L (5-34); Albumin 4.7 g/dL (3.5-5.0); Alkaline Phosphatase 88 U/L (40-110); BUN (Urea Nitrogen) 12 mg/dL (8.9-20.6); Bilirubin, Total 0.3 mg/dL (0.2-1.2); Calc. Creatinine Clearance 0 mL/min (70-130); Calcium 10.2 mg/dL (7.8-10.44); Carbon Dioxide Less than 8 mmol/L (22-29); Chloride 112 mmol/L (98-107); Estimated GFR 87; Globulin 3.7 g/dL (2.4-3.5); Glucose 116 mg/dL (70-105); Magnesium 2.5 mg/dL (1.6-2.6); Potassium 3.9 mmol/L (3.5-5.1); Protein, Total 8.4 g/dL (6.0-8.3); Sodium 147 mmol/L (136-145)
[2022-08-03 13:16] LABS: Acetaminophen Less than 10.0 mcg/mL (10.0-30.0); Alcohol Less than 10 mg/dL (Less than 10); Salicylate Less than 8.0 mg/dL (15.0-30.0)
[2022-08-03 13:20] LABS: Amphetamine Not Detected (NotDetected); Barbiturates Screen Detected (NotDetected); Benzodiazepine Screen Not Detected (NotDetected); Cocaine Metabolite Screen Not Detected (NotDetected); Medtox Control Line Valid? VALID (VALID); Methadone Not Detected (NotDetected); Methamphetamine Not Detected (NotDetected); Opiate Screen Not Detected (NotDetected); Oxycodone Screen Not Detected (NotDetected); Phencyclidine (PCP) Not Detected (NotDetected); THC/Cannabinoid Screen Detected (NotDetected); Tricyclic Screen Not Detected (NotDetected)
== END 2022-08-03 15:30 | disposition home or self-care (01) ==
LOC: MADERS 12:25
DX: G40.509 Epileptic seizures related to external causes, not intractable, without status epilepticus (principal); G40.409 Other generalized epilepsy and epileptic syndromes, not intractable, without status epilepticus; T42.4X5A Adverse effect of benzodiazepines, initial encounter; I10 Essential (primary) hypertension; E03.9 Hypothyroidism, unspecified; F17.210 Nicotine dependence, cigarettes, uncomplicated; Z91.14 Patient's other noncompliance with medication regimen
CPT/HCPCS: 80053; 80177; 80306; 80307; 83735; 85025; 93005; 96361; 96365; 96375; J1953; J2060; J7050

== ENCOUNTER 2023-04-20 03:38 | Emergency (ER) | payer OTHER ==
[2023-04-20 05:16] LABS: Band 2 % (5-11); Hematocrit 55.5 % (42.0-52.0); Hemoglobin 18.1 g/dL (14.0-18.0); Lymphocytes 2 % (21-51); MDiff Complete? YES; Mean Corpuscular HGB CONC 32.6 g/dL (32.0-36.0); Mean Corpuscular Hemoglobin 30.5 pg (27.0-31.0); Mean Corpuscular Volume 93.6 fl (78.0-98.0); Mean Platelet Volume 9.2 fL (7.4-10.4); Monocytes 1 % (0-10); Neutrophil 95 % (42-75); Platelet Adequacy Comment Appears Adequate; Platelet Count 303 10x3/uL (130-400); Red Blood Cell (RBC) Count 5.93 mill/uL (4.70-6.10); White Blood Cell (WBC) Count 31.7 10x3/uL (4.8-10.8)
[2023-04-20 05:20] LABS: Bilirubin Negative (Negative); Blood, Urine Moderate (Negative); Clarity Clear (Clear); Glucose, Urine (Dipstick) 100 mg/dL (Negative); Ketone, Urine Trace mg/dL (Negative); Leukocyte Negative (Negative); Nitrite Negative (Negative); Protein, Urine (Dipstick) > or equal to 300 mg/dL (Neg-Trace); Urobilinogen 0.2 mg/dL (Less than 2); pH, Urine 5.5 (5.0-9.0)
[2023-04-20 05:23] LABS: CAUTI Indications for Culture Acute Hematuria; RBC/HPF 0-3 HPF (0-3); Squamous Epithelial 0-3 HPF (0-3); WBC/HPF None Seen HPF (0-3)
[2023-04-20 05:24] LABS: Urine Culture Reflex No No
[2023-04-20 05:27] LABS: Alcohol Less than 10.0 mg/dL (Less than 10); Anion Gap 23 mmol/L (10-20); BUN (Urea Nitrogen) 18 mg/dL (8.9-20.6); Calc. Creatinine Clearance 0 mL/min (70-130); Calcium 9.8 mg/dL (7.8-10.44); Carbon Dioxide 14 mmol/L (22-29); Chloride 106 mmol/L (98-107); Estimated GFR 62; Glucose 137 mg/dL (70-105); Potassium 4.5 mmol/L (3.5-5.1); Sodium 138 mmol/L (136-145)
[2023-04-20 05:41] LABS: Amphetamine Not Detected (NotDetected); Barbiturates Screen Detected (NotDetected); Benzodiazepine Screen Detected (NotDetected); Cocaine Metabolite Screen Not Detected (NotDetected); Methadone Not Detected (NotDetected); Methamphetamine Not Detected (NotDetected); Opiate Screen Not Detected (NotDetected); Oxycodone Screen Not Detected (NotDetected); Phencyclidine (PCP) Not Detected (NotDetected); THC/Cannabinoid Screen Not Detected (NotDetected); Tricyclic Screen Not Detected (NotDetected)
[2023-04-20 05:45] LABS: ALT (SGPT) 29 U/L (8-55); Albumin 4.9 g/dL (3.5-5.0); Alkaline Phosphatase 77 U/L (40-110)
[2023-04-20 06:01] LABS: AST (SGOT) 22 U/L (5-34); Bilirubin, Direct 0.2 mg/dL (0.1-0.3); Bilirubin, Total 0.3 mg/dL (0.2-1.2); Protein, Total 8.7 g/dL (6.0-8.3)
== END 2023-04-20 06:05 | disposition home or self-care (01) ==
LOC: MADERS 03:38
DX: R56.9 Unspecified convulsions (principal); E03.9 Hypothyroidism, unspecified; I10 Essential (primary) hypertension; F17.210 Nicotine dependence, cigarettes, uncomplicated; Z79.899 Other long term (current) drug therapy
CPT/HCPCS: 80048; 80076; 80306; 80307; 81001; 85025; 99284

== ENCOUNTER 2023-04-21 06:22 | Emergency (ER) | payer OTHER ==
[2023-04-21] MEDS ORDERED: methylPREDNISolone Sod Succ/PF 125 MG/2 ML VIAL ONE (07:34)
[2023-04-21] MEDS ORDERED: Tranexamic Acid 1,000 MG/10 ML VIAL ONE (07:34)
[2023-04-21] MEDS ORDERED: diphenhydrAMINE 50 MG/ML VIAL ONE (07:34)
[2023-04-21 08:01] LABS: Bilirubin Small (Negative); Blood, Urine Negative (Negative); Clarity Clear (Clear); Glucose, Urine (Dipstick) Negative (Negative); Ketone, Urine 15 mg/dL (Negative); Leukocyte Negative (Negative); Nitrite Negative (Negative); Protein, Urine (Dipstick) 30 mg/dL (Neg-Trace); Specific Gravity, Urine 1.025 (1.005-1.030); Urobilinogen 0.2 mg/dL (Less than 2)
[2023-04-21 08:04] LABS: ALT (SGPT) 29 U/L (8-55); AST (SGOT) 35 U/L (5-34); Albumin 4.9 g/dL (3.5-5.0); Alkaline Phosphatase 78 U/L (40-110); Anion Gap 18 mmol/L (10-20); BUN (Urea Nitrogen) 16 mg/dL (8.9-20.6); Bilirubin, Total 0.8 mg/dL (0.2-1.2); Calc. Creatinine Clearance 0 mL/min (70-130); Calcium 10.7 mg/dL (7.8-10.44); Carbon Dioxide 21 mmol/L (22-29); Chloride 104 mmol/L (98-107); Estimated GFR 75; Globulin 3.9 g/dL (2.4-3.5); Glucose 102 mg/dL (70-105); Potassium 3.5 mmol/L (3.5-5.1); Protein, Total 8.8 g/dL (6.0-8.3); Sodium 139 mmol/L (136-145)
[2023-04-21 08:08] LABS: CAUTI Indications for Culture Pelvic or flank pain; RBC/HPF 0-3 HPF (0-3); WBC/HPF 0-3 HPF (0-3)
[2023-04-21 08:09] LABS: Bacteria/HPF Rare-Few HPF (None Seen); Mucous/LPF 1+ LPF (<2+); Urine Culture Reflex No No
[2023-04-21] MEDS ORDERED: levETIRAcetam 500 MG TAB ONE (08:42)
[2023-04-21] MEDS ORDERED: Ibuprofen 600 MG TAB ONE (08:42)
[2023-04-21] MEDS ORDERED: Phenytoin Extended Release 100 MG CAP ONE (08:42)
[2023-04-21 09:11] LABS: Band 4 % (5-11); Hematocrit 54.3 % (42.0-52.0); Lymphocytes 12 % (21-51); MDiff Complete? YES; Mean Corpuscular HGB CONC 33.1 g/dL (32.0-36.0); Mean Corpuscular Hemoglobin 30.5 pg (27.0-31.0); Mean Corpuscular Volume 92.4 fl (78.0-98.0); Monocytes 6 % (0-10); Neutrophil 78 % (42-75); Platelet Adequacy Comment Appears Adequate; Platelet Count 273 10x3/uL (130-400); RBC Distribution Width 12.3 % (11.5-14.5); Red Blood Cell (RBC) Count 5.88 mill/uL (4.70-6.10); White Blood Cell (WBC) Count 15.9 10x3/uL (4.8-10.8)
== END 2023-04-21 10:08 | disposition home or self-care (01) ==
LOC: MADERS 06:22
DX: T78.3XXA Angioneurotic edema, initial encounter (principal); F17.210 Nicotine dependence, cigarettes, uncomplicated; I10 Essential (primary) hypertension
CPT/HCPCS: 80053; 81001; 85025; 96374; 96375; J1200; J2930

== ENCOUNTER 2023-05-25 01:52 | Emergency (ER) | payer OTHER ==
[2023-05-25] MEDS ORDERED: Ondansetron PF 4 MG/2 ML Vial ONE (02:01)
[2023-05-25] MEDS ORDERED: levETIRAcetam 500 MG/5 ML VIAL ONE (02:28)
[2023-05-25 02:44] LABS: Hematocrit 50.8 % (42.0-52.0); Hemoglobin 16.8 g/dL (14.0-18.0); Lymphocytes 8 % (21-51); MDiff Complete? YES; Mean Corpuscular HGB CONC 33.1 g/dL (32.0-36.0); Mean Corpuscular Hemoglobin 31.7 pg (27.0-31.0); Mean Corpuscular Volume 95.7 fl (78.0-98.0); Mean Platelet Volume 7.6 fL (7.4-10.4); Monocytes 3 % (0-10); Neutrophil 89 % (42-75); Platelet Adequacy Comment Appears Adequate; Platelet Count 253 10x3/uL (130-400); RBC Distribution Width 13.2 % (11.5-14.5); Red Blood Cell (RBC) Count 5.31 mill/uL (4.70-6.10); White Blood Cell (WBC) Count 20.2 10x3/uL (4.8-10.8)
[2023-05-25 02:49] LABS: Base Excess-Venous -13.8 mmol/L (-2.0 to 3.0); Bicarbonate (HCO3v) 12.2 mmol/L (22.0-28.0); CO2 Tension (PvCO2) 29.3 mmHg (42.0-51.0); Chloride 112 mmol/L (98-107); Hemoglobin - Calc 17.7 g/dL (14.0-18.0); Potassium 3.9 mmol/L (3.5-5.1); Sodium 142 mmol/L (138-145); T. Carbon Dioxide 13.1 mmol/L (22.0-28.0); vO2 Saturation-calc 94.6 % (60.0-85.0)
[2023-05-25 02:52] LABS: Acetaminophen Less than 10 mcg/mL (10.0-30.0); Alcohol Less than 10.0 mg/dL (Less than 10); Lipase 25 U/L (8-78); Magnesium 2.7 mg/dL (1.6-2.6); Salicylate Less than 8.0 mg/dL (15.0-30.0)
[2023-05-25 02:55] LABS: ALT (SGPT) 34 U/L (8-55); AST (SGOT) 32 U/L (5-34); Albumin 4.3 g/dL (3.5-5.0); Alkaline Phosphatase 66 U/L (40-110); Anion Gap 24 mmol/L (10-20); BUN (Urea Nitrogen) 9 mg/dL (8.9-20.6); Bilirubin, Total 0.2 mg/dL (0.2-1.2); Calc. Creatinine Clearance 0 mL/min (70-130); Calcium 9.1 mg/dL (7.8-10.44); Carbon Dioxide 10 mmol/L (22-29); Chloride 109 mmol/L (98-107); Estimated GFR 73; Globulin 3.3 g/dL (2.4-3.5); Glucose 123 mg/dL (70-105); Potassium 4.1 mmol/L (3.5-5.1); Protein, Total 7.6 g/dL (6.0-8.3); Sodium 139 mmol/L (136-145)
[2023-05-25 02:59] LABS: Cocaine Metabolite Screen Detected (NotDetected); Methamphetamine Not Detected (NotDetected); Opiate Screen Not Detected (NotDetected); Phencyclidine (PCP) Not Detected (NotDetected); THC/Cannabinoid Screen Not Detected (NotDetected)
[2023-05-25 03:00] LABS: Amphetamine Not Detected (NotDetected); Barbiturates Screen Not Detected (NotDetected); Benzodiazepine Screen Detected (NotDetected); Methadone Not Detected (NotDetected); Oxycodone Screen Not Detected (NotDetected); Tricyclic Screen Not Detected (NotDetected)
[2023-05-25] MEDS ORDERED: Sodium Chloride 0.9% 1,000 ML ONE ×2 (03:02→07:34)
[2023-05-25 03:27] LABS: Bilirubin Negative (Negative); Blood, Urine Moderate (Negative); CAUTI Indications for Culture Alt mental st,lethar; Clarity Clear (Clear); Glucose, Urine (Dipstick) Negative (Negative); Ketone, Urine Negative (Negative); Leukocyte Negative (Negative); Nitrite Negative (Negative); Protein, Urine (Dipstick) 30 mg/dL (Neg-Trace); RBC/HPF 0-3 HPF (0-3); Specific Gravity, Urine 1.025 (1.005-1.030); Squamous Epithelial 0-3 HPF (0-3); Urobilinogen 0.2 mg/dL (Less than 2); WBC/HPF 0-3 HPF (0-3); pH, Urine 5.5 (5.0-9.0)
[2023-05-25 03:29] LABS: Urine Culture Reflex No No
[2023-05-25 03:44] LABS: Troponin I Less than 0.010 ng/mL (< 0.028)
[2023-05-25] MEDS ORDERED: Fosphenytoin Sodium 500 mg/10 ml Vial ONE (04:03)
[2023-05-25 05:32] LABS: Base Excess-Venous -7.1 mmol/L (-2.0 to 3.0); CO2 Tension (PvCO2) 39.5 mmHg (42.0-51.0); Chloride 113 mmol/L (98-107); Hemoglobin - Calc 15.9 g/dL (14.0-18.0); Potassium 3.8 mmol/L (3.5-5.1); Sodium 144 mmol/L (138-145); T. Carbon Dioxide 20.2 mmol/L (22.0-28.0); vO2 Saturation-calc 90.9 % (60.0-85.0)
[2023-05-25 05:34] LABS: Anion Gap 15 mmol/L (10-20); BUN (Urea Nitrogen) 9 mg/dL (8.9-20.6); Calc. Creatinine Clearance 0 mL/min (70-130); Calcium 8.2 mg/dL (7.8-10.44); Carbon Dioxide 17 mmol/L (22-29); Chloride 112 mmol/L (98-107); Estimated GFR 106; Glucose 95 mg/dL (70-105); Potassium 3.8 mmol/L (3.5-5.1); Sodium 140 mmol/L (136-145)
== END 2023-05-25 09:24 | disposition short-term general hospital (02) ==
LOC: MADERS 01:52
DX: G93.40 Encephalopathy, unspecified (principal); R56.9 Unspecified convulsions; F14.10 Cocaine abuse, uncomplicated; E03.9 Hypothyroidism, unspecified; I10 Essential (primary) hypertension; F17.210 Nicotine dependence, cigarettes, uncomplicated; Z79.899 Other long term (current) drug therapy
CPT/HCPCS: 70450; 80053; 80306; 80307; 81001; 82330; 82550; 82803; 83605; 83690; 83735; 84443; 84484; 85025; 87040; 93005; 96361; 96365; 96367; 96375; J1953; J2405; J7050; Q2009

== ENCOUNTER 2023-06-27 17:03 | Emergency (ER) | payer OTHER ==
[2023-06-27] MEDS ORDERED: levETIRAcetam 500 MG (5 mL) VIAL ONE (17:14)
[2023-06-27] MEDS ORDERED: Sodium Chloride 0.9% 1,000 ML ONE (17:14)
[2023-06-27 17:33] LABS: #Basophils 0.1 thou/uL (0.0-0.2); #Lymphocytes 1.5 thou/uL (1.20-3.40); #Monocytes 0.8 thou/uL (0.11-0.59); #Neutrophils 10.2 thou/uL (1.40-6.50); %Basophils 0.7 % (0.0-1.0); %Eosinophils 0.3 % (0.0-10.0); %Lymphocytes 12.1 % (21.0-51.0); %Monocytes 6.6 % (0.0-10.0); %Neutrophils 80.4 % (42.0-75.0); Hematocrit 51.1 % (42.0-52.0); Hemoglobin 16.1 g/dL (14.0-18.0); Mean Corpuscular HGB CONC 31.6 g/dL (32.0-36.0); Mean Corpuscular Hemoglobin 30.6 pg (27.0-31.0); Mean Platelet Volume 7.8 fL (7.4-10.4); Platelet Count 206 10x3/uL (130-400); RBC Distribution Width 12.7 % (11.5-14.5); Red Blood Cell (RBC) Count 5.27 mill/uL (4.70-6.10); White Blood Cell (WBC) Count 12.7 10x3/uL (4.8-10.8)
[2023-06-27 17:47] LABS: Acetaminophen Less than 10 mcg/mL (10.0-30.0); Alcohol Less than 10.0 mg/dL (Less than 10); Lipase 40 U/L (8-78); Salicylate Less than 8.0 mg/dL (15.0-30.0)
[2023-06-27 17:49] LABS: ALT (SGPT) 26 U/L (8-55); AST (SGOT) 18 U/L (5-34); Albumin 4.4 g/dL (3.5-5.0); Alkaline Phosphatase 78 U/L (40-110); Anion Gap 26 mmol/L (10-20); BUN (Urea Nitrogen) 9 mg/dL (8.9-20.6); Bilirubin, Total 0.2 mg/dL (0.2-1.2); Calc. Creatinine Clearance 0 mL/min (70-130); Calcium 9.2 mg/dL (7.8-10.44); Carbon Dioxide 12 mmol/L (22-29); Chloride 106 mmol/L (98-107); Estimated GFR 77; Globulin 3.3 g/dL (2.4-3.5); Glucose 113 mg/dL (70-105); Potassium 3.4 mmol/L (3.5-5.1); Protein, Total 7.7 g/dL (6.0-8.3); Sodium 141 mmol/L (136-145); Troponin I Less than 0.010 ng/mL (< 0.028)
[2023-06-27 18:31] LABS: Bilirubin Negative (Negative); Blood, Urine Small (Negative); Clarity Clear (Clear); Glucose, Urine (Dipstick) Negative (Negative); Ketone, Urine Trace mg/dL (Negative); Leukocyte Negative (Negative); Nitrite Negative (Negative); Protein, Urine (Dipstick) 100 mg/dL (Neg-Trace); Specific Gravity, Urine 1.025 (1.005-1.030); Urobilinogen 0.2 mg/dL (Less than 2); pH, Urine 5.5 (5.0-9.0)
[2023-06-27 18:41] LABS: Bacteria/HPF Rare-Few HPF (None Seen); CAUTI Indications for Culture Alt mental st,lethar; Mucous/LPF 1+ LPF (<2+); Squamous Epithelial 0-3 HPF (0-3); Urine Culture Reflex No No; WBC/HPF None Seen HPF (0-3)
[2023-06-27 19:42] LABS: Amphetamine Not Detected (NotDetected); Benzodiazepine Screen Detected (NotDetected); Cocaine Metabolite Screen Not Detected (NotDetected); Methamphetamine Not Detected (NotDetected); Opiate Screen Not Detected (NotDetected); Phencyclidine (PCP) Not Detected (NotDetected); THC/Cannabinoid Screen Not Detected (NotDetected); Tricyclic Screen Not Detected (NotDetected)
[2023-06-27 19:43] LABS: Barbiturates Screen Detected (NotDetected); Methadone Not Detected (NotDetected); Oxycodone Screen Not Detected (NotDetected)
== END 2023-06-27 20:50 | disposition home or self-care (01) ==
LOC: MADERS 17:03
DX: R56.9 Unspecified convulsions (principal); I10 Essential (primary) hypertension; F17.210 Nicotine dependence, cigarettes, uncomplicated; Z79.899 Other long term (current) drug therapy
CPT/HCPCS: 36415; 80053; 80306; 80307; 81001; 83605; 83690; 84443; 84484; 85025; 93005; 96365; J1953; J7050

== ENCOUNTER 2023-07-08 20:30 | Emergency (ER) | payer OTHER ==
[2023-07-08] MEDS ORDERED: levETIRAcetam 500 MG (5 mL) VIAL ONE (21:03)
[2023-07-08] MEDS ORDERED: Sodium Chloride 0.9% 1,000 ML ONE (21:04)
[2023-07-08] MEDS ORDERED: levETIRAcetam 500 MG TAB ONE (21:05)
[2023-07-08] MEDS ORDERED: Sodium Chloride 0.9% 100 ML ONE (21:06)
[2023-07-08] MEDS ORDERED: Acetaminophen 500 MG TAB ONE (21:58)
[2023-07-08] MEDS ORDERED: Phenytoin Extended Release 100 MG CAP ONE (22:41)
== END 2023-07-08 22:55 ==
LOC: MADERS 20:30
DX: G40.909 Epilepsy, unspecified, not intractable, without status epilepticus (principal); Z91.148 Patient's other noncompliance with medication regimen for other reason; I10 Essential (primary) hypertension; J45.909 Unspecified asthma, uncomplicated; F20.9 Schizophrenia, unspecified; Z79.899 Other long term (current) drug therapy; F17.210 Nicotine dependence, cigarettes, uncomplicated
CPT/HCPCS: 96365; J1953; J7050

== ENCOUNTER 2023-09-12 16:11 | Emergency (ER) | payer OTHER ==
[2023-09-12] MEDS ORDERED: Clindamycin 150 MG CAP ONE (17:02)
[2023-09-12] MEDS ORDERED: HYDROcodone/Acetaminophen 10/325 mg Tablet ONE (17:03)
== END 2023-09-12 17:30 | disposition home or self-care (01) ==
LOC: MADERS 16:11
DX: K04.7 Periapical abscess without sinus (principal); F17.210 Nicotine dependence, cigarettes, uncomplicated; I10 Essential (primary) hypertension; E03.9 Hypothyroidism, unspecified
CPT/HCPCS: 99282

== ENCOUNTER 2023-11-30 10:15 | Emergency (ER) | payer OTHER ==
[2023-11-30] MEDS ORDERED: Ketorolac Tromethamine 60 MG/2 ML VIAL ONE (10:42)
== END 2023-11-30 10:45 | disposition home or self-care (01) ==
LOC: MADERS 10:15
DX: K04.7 Periapical abscess without sinus (principal); R56.9 Unspecified convulsions
CPT/HCPCS: 96372; 99282; J1885

== ENCOUNTER 2023-12-07 12:02 | Emergency (ER) | payer OTHER ==
[2023-12-07] MEDS ORDERED: Ketorolac Tromethamine 30 MG (1 mL) VIAL ONE (12:15)
[2023-12-07] MEDS ORDERED: levETIRAcetam 500 MG (5 mL) VIAL ONE (12:15)
[2023-12-07 12:37] LABS: #Basophils 0.1 thou/uL (0.0-0.2); #Eosinphils 0.1 thou/uL (0.0-0.7); #Lymphocytes 1.1 thou/uL (1.20-3.40); #Monocytes 0.5 thou/uL (0.11-0.59); #Neutrophils 6.7 thou/uL (1.40-6.50); %Basophils 0.7 % (0.0-1.0); %Eosinophils 0.8 % (0.0-10.0); %Lymphocytes 12.7 % (21.0-51.0); %Monocytes 5.3 % (0.0-10.0); %Neutrophils 80.5 % (42.0-75.0); Hemoglobin 15.8 g/dL (14.0-18.0); Mean Corpuscular Hemoglobin 29.5 pg (27.0-31.0); Mean Corpuscular Volume 95.4 fl (78.0-98.0); Mean Platelet Volume 6.5 fL (7.4-10.4); Platelet Count 229 10x3/uL (130-400); Red Blood Cell (RBC) Count 5.35 mill/uL (4.70-6.10); White Blood Cell (WBC) Count 8.4 10x3/uL (4.8-10.8)
[2023-12-07 12:54] LABS: ALT (SGPT) 21 U/L (8-55); AST (SGOT) 17 U/L (5-34); Albumin 4.2 g/dL (3.5-5.0); Alkaline Phosphatase 69 U/L (40-110); Anion Gap 21 mmol/L (10-20); BUN (Urea Nitrogen) 11 mg/dL (8.9-20.6); Bilirubin, Total 0.5 mg/dL (0.2-1.2); Calc. Creatinine Clearance 0 mL/min (70-130); Calcium 9.2 mg/dL (7.8-10.44); Carbon Dioxide 15 mmol/L (22-29); Chloride 108 mmol/L (98-107); Estimated GFR 86; Globulin 2.9 g/dL (2.4-3.5); Glucose 95 mg/dL (70-105); Magnesium 2.7 mg/dL (1.6-2.6); Potassium 3.7 mmol/L (3.5-5.1); Protein, Total 7.1 g/dL (6.0-8.3); Sodium 140 mmol/L (136-145)
== END 2023-12-07 13:22 | disposition home or self-care (01) ==
LOC: MADERS 12:02
DX: R56.9 Unspecified convulsions (principal); S00.511A Abrasion of lip, initial encounter; W19.XXXA Unspecified fall, initial encounter
CPT/HCPCS: 80053; 80177; 83735; 85025; 93005; 96365; 96375; J1885; J1953

== ENCOUNTER 2023-12-09 21:09 | Emergency (ER) | payer OTHER ==
[~2023-12-09 21:09] MED LIST changes: +Iopamidol 370 76% 100 ML VIAL ONE; -Sodium Chloride 0.9% 100 ML BAG ONE
[2023-12-09] MEDS ORDERED: Sodium Chloride 0.9% 1,000 ML ONE (21:39)
[2023-12-09 21:42] LABS: Hematocrit 50.9 % (42.0-52.0); Hemoglobin 15.9 g/dL (14.0-18.0); Mean Corpuscular HGB CONC 31.2 g/dL (32.0-36.0); Mean Corpuscular Hemoglobin 29.3 pg (27.0-31.0); Platelet Count 251 10x3/uL (130-400); Red Blood Cell (RBC) Count 5.41 mill/uL (4.70-6.10); White Blood Cell (WBC) Count 12.2 10x3/uL (4.8-10.8)
[2023-12-09 21:43] LABS: Manual Diff?? YES; Mean Platelet Volume 6.1 fL (7.4-10.4)
[2023-12-09 21:47] LABS: Band 3 % (5-11); Lymphocytes 12 % (21-51); MDiff Complete? YES; Neutrophil 81 % (42-75)
[2023-12-09 21:48] LABS: Monocytes 4 % (0-10); Platelet Adequacy Comment Appears Adequate; RBC Morph Comment Within Normal Limits
[2023-12-09 21:52] LABS: ALT (SGPT) 46 U/L (8-55); AST (SGOT) 42 U/L (5-34); Albumin 4.6 g/dL (3.5-5.0); Alkaline Phosphatase 71 U/L (40-110); Anion Gap 22 mmol/L (10-20); BUN (Urea Nitrogen) 11 mg/dL (8.9-20.6); Bilirubin, Total 0.4 mg/dL (0.2-1.2); Calc. Creatinine Clearance 0 mL/min (70-130); Calcium 9.7 mg/dL (7.8-10.44); Carbon Dioxide 16 mmol/L (22-29); Chloride 110 mmol/L (98-107); Estimated GFR 72; Globulin 3.2 g/dL (2.4-3.5); Glucose 117 mg/dL (70-105); Potassium 3.6 mmol/L (3.5-5.1); Protein, Total 7.8 g/dL (6.0-8.3); Sodium 144 mmol/L (136-145)
[2023-12-09 21:53] LABS: Acetaminophen Less than 10 mcg/mL (10.0-30.0); Alcohol Less than 10.0 mg/dL (Less than 10); Lipase 29 U/L (8-78); Salicylate Less than 8.0 mg/dL (15.0-30.0)
[2023-12-09] MEDS ORDERED: levETIRAcetam 500 MG (5 mL) VIAL ONE (22:16)
[2023-12-09] MEDS ORDERED: Sodium Chloride 0.9% 100 ML ONE (22:18)
[2023-12-09 22:40] LABS: Amphetamine Not Detected (NotDetected); Barbiturates Screen Detected (NotDetected); Benzodiazepine Screen Detected (NotDetected); Cocaine Metabolite Screen Not Detected (NotDetected); Methadone Not Detected (NotDetected); Methamphetamine Not Detected (NotDetected); Opiate Screen Not Detected (NotDetected); Oxycodone Screen Not Detected (NotDetected); Phencyclidine (PCP) Not Detected (NotDetected); THC/Cannabinoid Screen Detected (NotDetected); Tricyclic Screen Not Detected (NotDetected)
[2023-12-09 22:43] LABS: Troponin I 0.058 ng/mL (< 0.028)
[2023-12-09] MEDS ORDERED: Haloperidol Lactate 5 MG/ML VIAL ONE ×2 (23:20→23:38)
[2023-12-10 00:52] LABS: Troponin I Less than 0.010 ng/mL (< 0.028)
== END 2023-12-10 01:11 ==
LOC: MADERS 21:09
DX: S30.810A Abrasion of lower back and pelvis, initial encounter (principal); G40.909 Epilepsy, unspecified, not intractable, without status epilepticus; F20.9 Schizophrenia, unspecified; F19.10 Other psychoactive substance abuse, uncomplicated; R79.89 Other specified abnormal findings of blood chemistry; V43.52XA Car driver injured in collision with other type car in traffic accident, initial encounter; Y93.89 Activity, other specified; Y92.481 Parking lot as the place of occurrence of the external cause; Z79.899 Other long term (current) drug therapy
CPT/HCPCS: 70450; 71260; 72125; 74177; 80053; 80306; 80307; 83690; 84484; 85025; 93005; 94760; 96365; 96375; J1630; J1953; J7050; Q9967

== ENCOUNTER 2023-12-10 13:35 | Emergency (ER) | payer OTHER ==
[2023-12-10 15:27] LABS: Anion Gap 18 mmol/L (10-20); BUN (Urea Nitrogen) 7 mg/dL (8.9-20.6); Calc. Creatinine Clearance 0 mL/min (70-130); Calcium 9.3 mg/dL (7.8-10.44); Carbon Dioxide 18 mmol/L (22-29); Chloride 110 mmol/L (98-107); Estimated GFR 105; Glucose 131 mg/dL (70-105); Potassium 3.7 mmol/L (3.5-5.1); Sodium 142 mmol/L (136-145)
[2023-12-10 15:32] LABS: Band 9 % (5-11); Hematocrit 47.9 % (42.0-52.0); Hemoglobin 15.3 g/dL (14.0-18.0); Lymphocytes 3 % (21-51); MDiff Complete? YES; Mean Corpuscular HGB CONC 31.8 g/dL (32.0-36.0); Mean Corpuscular Hemoglobin 29.6 pg (27.0-31.0); Mean Corpuscular Volume 93.1 fl (78.0-98.0); Mean Platelet Volume 6.1 fL (7.4-10.4); Monocytes 6 % (0-10); Neutrophil 82 % (42-75); Platelet Adequacy Comment Appears Adequate; Platelet Count 255 10x3/uL (130-400); RBC Distribution Width 11.8 % (11.5-14.5); Red Blood Cell (RBC) Count 5.15 mill/uL (4.70-6.10); White Blood Cell (WBC) Count 18.2 10x3/uL (4.8-10.8)
[2023-12-10 15:34] LABS: Amphetamine Not Detected (NotDetected); Barbiturates Screen Detected (NotDetected); Benzodiazepine Screen Not Detected (NotDetected); Cocaine Metabolite Screen Not Detected (NotDetected); Methadone Not Detected (NotDetected); Methamphetamine Not Detected (NotDetected); Opiate Screen Not Detected (NotDetected); Oxycodone Screen Not Detected (NotDetected); Phencyclidine (PCP) Not Detected (NotDetected); THC/Cannabinoid Screen Detected (NotDetected); Tricyclic Screen Not Detected (NotDetected)
[2023-12-10 15:36] LABS: Bilirubin Negative (Negative); Blood, Urine Trace (Negative); Clarity Hazy (Clear); Glucose, Urine (Dipstick) Negative (Negative); Ketone, Urine 15 mg/dL (Negative); Leukocyte Negative (Negative); Nitrite Negative (Negative); Protein, Urine (Dipstick) Trace mg/dL (Neg-Trace); Urobilinogen 0.2 mg/dL (Less than 2); pH, Urine 5.5 (5.0-9.0)
[2023-12-10 15:38] LABS: Specific Gravity, Urine 1.028 (1.002-1.036)
[2023-12-10 15:44] LABS: Bacteria/HPF Rare-Few HPF (None Seen); CAUTI Indications for Culture Fever or rigors; RBC/HPF 0-3 HPF (0-3); Squamous Epithelial 0-3 HPF (0-3); WBC/HPF 0-3 HPF (0-3)
[2023-12-10 15:45] LABS: Urine Culture Reflex No No
== END 2023-12-10 16:55 ==
LOC: EEVIPCON 13:35 → MADERS 13:35
DX: G40.909 Epilepsy, unspecified, not intractable, without status epilepticus (principal)
CPT/HCPCS: 36415; 80048; 80306; 81001; 85025; 99284

== ENCOUNTER 2024-01-29 10:56 | Emergency (ER) | payer OTHER ==
[2024-01-29] MEDS ORDERED: diphenhydrAMINE 50 MG/ML VIAL ONE (11:19)
[2024-01-29] MEDS ORDERED: Sodium Chloride 0.9% 1,000 ML ONE (11:19)
[2024-01-29] MEDS ORDERED: Acetaminophen 500 MG TAB ONE (11:19)
[2024-01-29] MEDS ORDERED: Boostrix 0.5 ML (Tdap) VIAL (>/=7 yrs of age) ONE (11:20)
[2024-01-29 11:25] LABS: INR-International Normal Ratio 1.1; Prothrombin Time 14.5 sec (12.0-14.7)
[2024-01-29 11:26] LABS: PTT 30.5 sec (22.9-36.1)
[2024-01-29 11:30] LABS: Band 1 % (5-11); Eosinophils 1 % (0-10); Hematocrit 53.9 % (42.0-52.0); Hemoglobin 16.9 g/dL (14.0-18.0); Lymphocytes 24 % (21-51); MDiff Complete? YES; Mean Corpuscular HGB CONC 31.4 g/dL (32.0-36.0); Mean Corpuscular Hemoglobin 29.2 pg (27.0-31.0); Mean Corpuscular Volume 93.1 fl (78.0-98.0); Mean Platelet Volume 5.4 fL (7.4-10.4); Monocytes 7 % (0-10); Neutrophil 67 % (42-75); Platelet Adequacy Comment Appears Adequate; Platelet Count 302 10x3/uL (130-400); RBC Distribution Width 12.7 % (11.5-14.5); Red Blood Cell (RBC) Count 5.79 mill/uL (4.70-6.10); White Blood Cell (WBC) Count 9.4 10x3/uL (4.8-10.8)
[2024-01-29 11:31] LABS: ALT (SGPT) 49 U/L (8-55); AST (SGOT) 27 U/L (5-34); Albumin 4.6 g/dL (3.5-5.0); Alkaline Phosphatase 84 U/L (40-110); Anion Gap 17 mmol/L (10-20); BUN (Urea Nitrogen) 12 mg/dL (8.9-20.6); Bilirubin, Total 0.5 mg/dL (0.2-1.2); CK (CPK) 85 U/L (30-200); Calc. Creatinine Clearance 0 mL/min (70-130); Carbon Dioxide 19 mmol/L (22-29); Chloride 107 mmol/L (98-107); Estimated GFR 71; Globulin 3.6 g/dL (2.4-3.5); Glucose 97 mg/dL (70-105); Potassium 3.7 mmol/L (3.5-5.1); Protein, Total 8.2 g/dL (6.0-8.3); Sodium 139 mmol/L (136-145)
[2024-01-29 13:22] LABS: Bilirubin Negative (Negative); Blood, Urine Negative (Negative); Clarity Slightly Cloudy (Clear); Glucose, Urine (Dipstick) Negative (Negative); Ketone, Urine Negative (Negative); Leukocyte Negative (Negative); Nitrite Negative (Negative); Protein, Urine (Dipstick) 30 mg/dL (Neg-Trace); Urobilinogen 0.2 mg/dL (Less than 2)
[2024-01-29 13:25] LABS: Bacteria/HPF Rare-Few HPF (None Seen); CAUTI Indications for Culture Pelvic or flank pain; Mucous/LPF 1+ LPF (<2+); RBC/HPF 0-3 HPF (0-3); Squamous Epithelial 0-3 HPF (0-3); WBC/HPF 0-3 HPF (0-3)
[2024-01-29 13:26] LABS: Urine Culture Reflex No No
== END 2024-01-29 13:47 | disposition home or self-care (01) ==
LOC: MADERS 10:56
DX: T63.001A Toxic effect of unspecified snake venom, accidental (unintentional), initial encounter (principal); F17.210 Nicotine dependence, cigarettes, uncomplicated; Z23 Encounter for immunization
CPT/HCPCS: 80053; 81001; 82550; 85025; 85610; 85730; 90471; 90715; 93005; 96374; J1200; J7030

== ENCOUNTER 2024-02-28 09:09 | Emergency (ER) | payer OTHER ==
[2024-02-28] MEDS ORDERED: Fosphenytoin Sodium 500 mg/10 ml Vial ONE (09:53)
[2024-02-28] MEDS ORDERED: Lorazepam 2 MG/ML VIAL ONE (09:53)
[2024-02-28 10:15] LABS: #Basophils 0.1 thou/uL (0.0-0.2); #Eosinphils 0.1 thou/uL (0.0-0.7); #Lymphocytes 2.7 thou/uL (1.20-3.40); #Monocytes 0.9 thou/uL (0.11-0.59); #Neutrophils 13.4 thou/uL (1.40-6.50); %Basophils 0.7 % (0.0-1.0); %Eosinophils 0.8 % (0.0-10.0); %Lymphocytes 15.4 % (21.0-51.0); %Monocytes 5.5 % (0.0-10.0); %Neutrophils 77.7 % (42.0-75.0); Hematocrit 54.5 % (42.0-52.0); Hemoglobin 16.2 g/dL (14.0-18.0); Mean Corpuscular HGB CONC 29.7 g/dL (32.0-36.0); Mean Corpuscular Hemoglobin 29.5 pg (27.0-31.0); Mean Corpuscular Volume 99.3 fl (78.0-98.0); Mean Platelet Volume 6.3 fL (7.4-10.4); Platelet Count 245 10x3/uL (130-400); RBC Distribution Width 12.7 % (11.5-14.5); Red Blood Cell (RBC) Count 5.48 mill/uL (4.70-6.10); White Blood Cell (WBC) Count 17.2 10x3/uL (4.8-10.8)
[2024-02-28 10:30] LABS: ALT (SGPT) 59 U/L (8-55); AST (SGOT) 39 U/L (5-34); Albumin 4.2 g/dL (3.5-5.0); Alkaline Phosphatase 73 U/L (40-110); BUN (Urea Nitrogen) 9 mg/dL (8.9-20.6); Bilirubin, Total 0.3 mg/dL (0.2-1.2); Calc. Creatinine Clearance 0 mL/min (70-130); Calcium 9.2 mg/dL (7.8-10.44); Chloride 112 mmol/L (98-107); Estimated GFR 74; Globulin 3.7 g/dL (2.4-3.5); Glucose 115 mg/dL (70-105); Potassium 3.9 mmol/L (3.5-5.1); Protein, Total 7.9 g/dL (6.0-8.3); Sodium 145 mmol/L (136-145)
[2024-02-28 10:49] LABS: Carbon Dioxide Less than 8 mmol/L (22-29); Critical Call Chemistry NUR.AW2@1049
[2024-02-28] MEDS ORDERED: ALPRAZolam 0.5 MG TAB ONE (12:57)
== END 2024-02-28 13:00 | disposition home or self-care (01) ==
LOC: MADERS 09:09
DX: R56.9 Unspecified convulsions (principal); F17.210 Nicotine dependence, cigarettes, uncomplicated
CPT/HCPCS: 80053; 85025; 96365; 96374; J2060; Q2009

== ENCOUNTER 2024-04-03 00:06 | Emergency (ER) | payer OTHER ==
[2024-04-03] MEDS ORDERED: levETIRAcetam 500 MG TAB ONE (00:12)
== END 2024-04-03 01:00 | disposition home or self-care (01) ==
LOC: MADERS 00:06
DX: G40.909 Epilepsy, unspecified, not intractable, without status epilepticus (principal); F17.210 Nicotine dependence, cigarettes, uncomplicated; Z79.899 Other long term (current) drug therapy
CPT/HCPCS: 36416; 99284

== ENCOUNTER 2024-04-03 03:42 | Emergency (ER) | payer OTHER ==
[2024-04-03] MEDS ORDERED: Ziprasidone 20 MG VIAL ONE (04:00)
[2024-04-03] MEDS ORDERED: levETIRAcetam 500 MG (5 mL) VIAL ONE (04:00)
[2024-04-03] MEDS ORDERED: Sterile Water 10 ML ONE (04:03)
[2024-04-03 04:26] LABS: Band 2 % (5-11); Hematocrit 45.7 % (42.0-52.0); Hemoglobin 15.2 g/dL (14.0-18.0); Lymphocytes 10 % (21-51); MDiff Complete? YES; Mean Corpuscular HGB CONC 33.3 g/dL (32.0-36.0); Mean Corpuscular Hemoglobin 31.2 pg (27.0-31.0); Mean Corpuscular Volume 93.9 fl (78.0-98.0); Mean Platelet Volume 7.5 fL (7.4-10.4); Monocytes 5 % (0-10); Neutrophil 83 % (42-75); Platelet Count 230 10x3/uL (130-400); RBC Distribution Width 12.2 % (11.5-14.5); Red Blood Cell (RBC) Count 4.87 mill/uL (4.70-6.10); White Blood Cell (WBC) Count 13.1 10x3/uL (4.8-10.8)
[2024-04-03 04:33] LABS: ALT (SGPT) 28 U/L (8-55); AST (SGOT) 15 U/L (5-34); Albumin 4.1 g/dL (3.5-5.0); Alkaline Phosphatase 66 U/L (40-110); Anion Gap 23 mmol/L (10-20); BUN (Urea Nitrogen) 8 mg/dL (8.9-20.6); Bilirubin, Total 0.4 mg/dL (0.2-1.2); Calc. Creatinine Clearance 0 mL/min (70-130); Calcium 8.9 mg/dL (7.8-10.44); Carbon Dioxide 13 mmol/L (22-29); Chloride 107 mmol/L (98-107); Estimated GFR 87; Globulin 3.4 g/dL (2.4-3.5); Glucose 122 mg/dL (70-105); Potassium 3.6 mmol/L (3.5-5.1); Protein, Total 7.5 g/dL (6.0-8.3); Sodium 139 mmol/L (136-145)
== END 2024-04-03 06:50 | disposition home or self-care (01) ==
LOC: MADERS 03:42
DX: G40.909 Epilepsy, unspecified, not intractable, without status epilepticus (principal); F20.9 Schizophrenia, unspecified; F17.210 Nicotine dependence, cigarettes, uncomplicated; Z79.899 Other long term (current) drug therapy
CPT/HCPCS: 36415; 80053; 85025; 94760; 96372; 96374; J1953; J3486

== ENCOUNTER 2024-05-06 23:35 | Emergency (ER) | payer SELFPAY ==
[2024-05-07 00:15] LABS: #Basophils 0.1 thou/uL (0.0-0.2); #Eosinophils 0.1 thou/uL (0.0-0.7); #Lymphocytes 2.3 thou/uL (1.20-3.40); #Monocytes 0.9 thou/uL (0.11-0.59); #Neutrophils 12.8 thou/uL (1.40-6.50); %Basophils 0.5 % (0.0-1.0); %Eosinophils 0.6 % (0.0-10.0); %Lymphocytes 14.1 % (21.0-51.0); %Monocytes 5.5 % (0.0-10.0); %Neutrophils 79.2 % (42.0-75.0); Hematocrit 44.4 % (42.0-52.0); Hemoglobin 14.7 g/dL (14.0-18.0); Mean Corpuscular HGB CONC 33.2 g/dL (32.0-36.0); Mean Corpuscular Hemoglobin 31.1 pg (27.0-31.0); Mean Corpuscular Volume 93.7 fl (78.0-98.0); Mean Platelet Volume 6.4 fL (7.4-10.4); Platelet Count 257 10x3/uL (130-400); RBC Distribution Width 11.7 % (11.5-14.5); Red Blood Cell (RBC) Count 4.74 mill/uL (4.70-6.10); White Blood Cell (WBC) Count 16.1 10x3/uL (4.8-10.8)
[2024-05-07 00:34] LABS: ALT (SGPT) 49 U/L (8-55); AST (SGOT) 32 U/L (5-34); Albumin 3.8 g/dL (3.5-5.0); Alkaline Phosphatase 77 U/L (40-110); Anion Gap 9 mmol/L (10-20); BUN (Urea Nitrogen) 11 mg/dL (8.9-20.6); Bilirubin, Total 0.2 mg/dL (0.2-1.2); Calc. Creatinine Clearance 0 mL/min (70-130); Calcium 8.7 mg/dL (7.8-10.44); Carbon Dioxide 26 mmol/L (22-29); Chloride 107 mmol/L (98-107); Estimated GFR 101; Glucose 93 mg/dL (70-105); Lipase 22 U/L (8-78); Potassium 3.6 mmol/L (3.5-5.1); Protein, Total 6.8 g/dL (6.0-8.3); Sodium 138 mmol/L (136-145)
[2024-05-07] MEDS ORDERED: Ziprasidone 20 MG VIAL ONE (00:36)
[2024-05-07 00:37] LABS: Troponin I Less than 0.010 ng/mL (< 0.028)
[2024-05-07] MEDS ORDERED: Sterile Water 10 ML ONE (00:38)
[2024-05-07 01:06] LABS: Amphetamine Not Detected (NotDetected); Barbiturates Screen Detected (NotDetected); Benzodiazepine Screen Detected (NotDetected); Cocaine Metabolite Screen Not Detected (NotDetected); Methadone Not Detected (NotDetected); Methamphetamine Detected (NotDetected); Opiate Screen Not Detected (NotDetected); Oxycodone Screen Not Detected (NotDetected); Phencyclidine (PCP) Not Detected (NotDetected); THC/Cannabinoid Screen Not Detected (NotDetected); Tricyclic Screen Not Detected (NotDetected)
== END 2024-05-07 01:20 | disposition home or self-care (01) ==
LOC: MADERS 23:35
DX: F19.90 Other psychoactive substance use, unspecified, uncomplicated (principal); R07.9 Chest pain, unspecified; F17.210 Nicotine dependence, cigarettes, uncomplicated
CPT/HCPCS: 36415; 71045; 80053; 80306; 83690; 84484; 85025; 93005; 96372; J3486

== ENCOUNTER 2024-06-21 11:34 | Emergency (ER) | payer OTHER ==
[2024-06-21] MEDS ORDERED: levETIRAcetam 500 MG (5 mL) VIAL ONE (11:46)
[2024-06-21] MEDS ORDERED: Sodium Chloride 0.9% 100 ML ONE (11:47)
[2024-06-21 12:12] LABS: Hematocrit 52.2 % (42.0-52.0); Hemoglobin 16.7 g/dL (14.0-18.0); Mean Corpuscular HGB CONC 31.9 g/dL (32.0-36.0); Mean Corpuscular Hemoglobin 30.4 pg (27.0-31.0); Mean Corpuscular Volume 95.2 fl (78.0-98.0); Mean Platelet Volume 6.5 fL (7.4-10.4); Platelet Count 252 10x3/uL (130-400); RBC Distribution Width 12.9 % (11.5-14.5); Red Blood Cell (RBC) Count 5.48 mill/uL (4.70-6.10); White Blood Cell (WBC) Count 20.7 10x3/uL (4.8-10.8)
[2024-06-21 12:34] LABS: ALT (SGPT) 55 U/L (8-55); AST (SGOT) 31 U/L (5-34); Albumin 4.5 g/dL (3.5-5.0); Alkaline Phosphatase 72 U/L (40-110); Anion Gap 20 mmol/L (10-20); BUN (Urea Nitrogen) 7 mg/dL (8.9-20.6); Bilirubin, Total 0.4 mg/dL (0.2-1.2); CK (CPK) 344 U/L (30-200); Calc. Creatinine Clearance 0 mL/min (70-130); Carbon Dioxide 15 mmol/L (22-29); Chloride 109 mmol/L (98-107); Estimated GFR 90; Globulin 2.6 g/dL (2.4-3.5); Glucose 144 mg/dL (70-105); Potassium 4.3 mmol/L (3.5-5.1); Protein, Total 7.1 g/dL (6.0-8.3); Sodium 140 mmol/L (136-145)
[2024-06-21 12:36] LABS: Band 2 % (5-11); Lymphocytes 6 % (21-51); MDiff Complete? YES; Monocytes 4 % (0-10); Neutrophil 88 % (42-75); Platelet Adequacy Comment Appears Adequate
[2024-06-21 13:48] LABS: Bilirubin Negative (Negative); Blood, Urine Moderate (Negative); Clarity Clear (Clear); Glucose, Urine (Dipstick) 100 mg/dL (Negative); Ketone, Urine Negative (Negative); Leukocyte Negative (Negative); Nitrite Negative (Negative); Protein, Urine (Dipstick) 30 mg/dL (Neg-Trace); Urobilinogen 0.2 mg/dL (Less than 2); pH, Urine 5.5 (5.0-9.0)
[2024-06-21 13:50] LABS: Specific Gravity, Urine 1.016 (1.002-1.036)
[2024-06-21 14:00] LABS: Bacteria/HPF Rare-Few HPF (None Seen); CAUTI Indications for Culture Alt mental st,lethar; Oval Fat Bodies/HPF 1+ HPF (None Seen); RBC/HPF 0-3 HPF (0-3); Squamous Epithelial 0-3 HPF (0-3); Trichomonas/HPF Rare HPF (None Seen); WBC/HPF 0-3 HPF (0-3)
[2024-06-21 14:02] LABS: Urine Culture Reflex No No
== END 2024-06-21 14:55 | disposition home or self-care (01) ==
LOC: MADERS 11:34
DX: R56.9 Unspecified convulsions (principal); A59.03 Trichomonal cystitis and urethritis; F17.210 Nicotine dependence, cigarettes, uncomplicated
CPT/HCPCS: 71045; 80053; 81001; 82550; 83605; 85025; 96374; J1953

== ENCOUNTER 2024-08-29 15:04 | Emergency (ER) | payer OTHER, SELFPAY ==
[2024-08-29] MEDS ORDERED: Bupivacaine PF 0.5% 30 ML VIAL ONE (15:29)
[2024-08-29] MEDS ORDERED: Lidocaine 1% w/Epinephrine 1:100K 20 ML VIAL ONE (15:29)
== END 2024-08-29 16:20 | disposition home or self-care (01) ==
LOC: MADERS 15:04
DX: S02.5XXA Fracture of tooth (traumatic), initial encounter for closed fracture (principal); R56.9 Unspecified convulsions; F17.210 Nicotine dependence, cigarettes, uncomplicated; X58.XXXA Exposure to other specified factors, initial encounter
CPT/HCPCS: 64400; J0665

== ENCOUNTER 2024-08-29 23:54 | Emergency (ER) | payer SELFPAY | END 2024-08-30 00:23 | disposition home or self-care (01) | LOC: MADERS 23:54 | DX: K02.9 Dental caries, unspecified (principal); F17.210 Nicotine dependence, cigarettes, uncomplicated | CPT/HCPCS: 99282 ==

== ENCOUNTER 2025-01-31 02:53 | Emergency (ER) | payer OTHER ==
[2025-01-31] MEDS ORDERED: levETIRAcetam 500 MG TAB ONE (03:23)
[2025-01-31] MEDS ORDERED: Phenytoin Extended Release 100 MG CAP ONE (03:23)
[2025-01-31] MEDS ORDERED: Ziprasidone 20 MG CAP PO SCH (03:30)
== END 2025-01-31 03:42 | disposition home or self-care (01) ==
LOC: MADERS 02:53
DX: F41.1 Generalized anxiety disorder (principal); G40.909 Epilepsy, unspecified, not intractable, without status epilepticus; R03.0 Elevated blood-pressure reading, without diagnosis of hypertension; F17.210 Nicotine dependence, cigarettes, uncomplicated; Z76.0 Encounter for issue of repeat prescription
CPT/HCPCS: 99283

== ENCOUNTER 2025-01-31 22:15 | Emergency (ER) | payer OTHER | END 2025-02-01 | disposition home or self-care (01) | LOC: MADERS 22:15 | DX: G40.909 Epilepsy, unspecified, not intractable, without status epilepticus (principal); F17.210 Nicotine dependence, cigarettes, uncomplicated; Z79.899 Other long term (current) drug therapy | CPT/HCPCS: 99284 ==

== ENCOUNTER 2025-02-03 20:32 | Emergency (ER) | payer OTHER ==
[2025-02-03] MEDS ORDERED: levETIRAcetam 500 MG (5 mL) VIAL ONE (21:27)
[2025-02-03 21:50] LABS: #Basophils 0.1 thou/uL (0.0-0.2); #Eosinophils 0.0 thou/uL (0.0-0.7); #Lymphocytes 3.1 thou/uL (1.20-3.40); #Monocytes 1.2 thou/uL (0.11-0.59); #Neutrophils 12.0 thou/uL (1.40-6.50); %Basophils 0.9 % (0.0-1.0); %Eosinophils 0.2 % (0.0-10.0); %Lymphocytes 19.0 % (21.0-51.0); %Monocytes 7.3 % (0.0-10.0); %Neutrophils 72.6 % (42.0-75.0); Hematocrit 53.9 % (42.0-52.0); Hemoglobin 16.8 g/dL (14.0-18.0); Mean Corpuscular Hemoglobin 30.2 pg (27.0-31.0); Mean Corpuscular Volume 96.9 fl (78.0-98.0); Platelet Count 324 10x3/uL (130-400); Red Blood Cell (RBC) Count 5.56 mill/uL (4.70-6.10); White Blood Cell (WBC) Count 16.5 10x3/uL (4.8-10.8)
[2025-02-03 22:08] LABS: ALT (SGPT) 21 U/L (Less than 45); AST (SGOT) 28 U/L (11-34); Albumin 4.8 g/dL (3.1-4.5); Alkaline Phosphatase 63 U/L (40-110); BUN (Urea Nitrogen) 17 mg/dL (8.9-20.6); Bilirubin, Total 0.6 mg/dL (0.3-1.2); CK (CPK) 359 U/L (30-200); Calc. Creatinine Clearance 0 mL/min (70-130); Calcium 9.7 mg/dL (7.8-10.44); Chloride 101 mmol/L (98-107); Globulin 3.9 g/dL (2.4-3.5); Glucose 148 mg/dL (70-105); Magnesium 2.2 mg/dL (1.6-2.6); Potassium 3.8 mmol/L (3.5-5.1); Sodium 141 mmol/L (136-145)
[2025-02-03 22:11] LABS: Carbon Dioxide Less than 8 mmol/L (22-29)
[2025-02-03 22:22] LABS: Critical Call Chem-Lactate NUR.AID@2221
[2025-02-03 23:40] LABS: Glucose, Urine (Dipstick) Negative (Negative); Leukocyte Negative (Negative); Protein, Urine (Dipstick) 100 mg/dL (Neg-Trace); Specific Gravity, Urine Greater/Equal 1.030 (1.005-1.030)
[2025-02-03 23:47] LABS: Bacteria/HPF Rare-Few HPF (None Seen); CAUTI Indications for Culture Alt mental st,lethar; Mucous/LPF Rare LPF (<2+); RBC/HPF 0-3 HPF (0-3); Urine Culture Reflex No No; WBC/HPF 0-3 HPF (0-3)
[2025-02-03 23:50] LABS: Cocaine Metabolite Screen Negative (Negative); THC/Cannabinoid Screen Negative (Negative); Tricyclic Screen Negative (Negative)
[2025-02-04] MEDS ORDERED: ALPRAZolam 0.5 MG TAB ONE (02:17)
== END 2025-02-04 02:40 | disposition home or self-care (01) ==
LOC: MADERS 20:32
DX: G40.909 Epilepsy, unspecified, not intractable, without status epilepticus (principal); E86.0 Dehydration; E87.20 Acidosis, unspecified; F17.210 Nicotine dependence, cigarettes, uncomplicated; Z79.899 Other long term (current) drug therapy
CPT/HCPCS: 36415; 71045; 80053; 80177; 80185; 80306; 81001; 82550; 83605; 83735; 85025; 96361; 96365; 96372; 96375; J1953; J2060; J7030; Q2009

== ENCOUNTER 2025-02-08 04:04 | Emergency (ER) | payer OTHER ==
[2025-02-08] MEDS ORDERED: levETIRAcetam 500 MG (5 mL) VIAL ONE (04:28)
[2025-02-08 04:31] LABS: Hematocrit 48.1 % (42.0-52.0); Hemoglobin 16.1 g/dL (14.0-18.0); MDiff Complete? YES; Mean Corpuscular Hemoglobin 31.1 pg (27.0-31.0); Mean Corpuscular Volume 92.6 fl (78.0-98.0); Platelet Count 337 10x3/uL (130-400); Red Blood Cell (RBC) Count 5.19 mill/uL (4.70-6.10); White Blood Cell (WBC) Count 9.4 10x3/uL (4.8-10.8)
[2025-02-08 04:49] LABS: ALT (SGPT) 21 U/L (Less than 45); AST (SGOT) 21 U/L (11-34); Albumin 4.2 g/dL (3.1-4.5); Alkaline Phosphatase 57 U/L (40-110); Anion Gap 18 mmol/L (10-20); BUN (Urea Nitrogen) 10 mg/dL (8.9-20.6); Bilirubin, Total 0.9 mg/dL (0.3-1.2); Calc. Creatinine Clearance 0 mL/min (70-130); Calcium 9.3 mg/dL (7.8-10.44); Carbon Dioxide 22 mmol/L (22-29); Chloride 106 mmol/L (98-107); Globulin 3.2 g/dL (2.4-3.5); Glucose 190 mg/dL (70-105); Potassium 3.1 mmol/L (3.5-5.1); Sodium 143 mmol/L (136-145)
== END 2025-02-08 06:03 | disposition home or self-care (01) ==
LOC: MADERS 04:04
DX: G40.909 Epilepsy, unspecified, not intractable, without status epilepticus (principal); F17.210 Nicotine dependence, cigarettes, uncomplicated
CPT/HCPCS: 80053; 85025; 96374; 96375; J1953; J7030; Q2009